=== PATIENT | male | born 1955 | race Two or more races ===

== ENCOUNTER 2021-02-02 05:06 | Inpatient (IN) | payer MEDICAID ==
[~2021-02-02] VITALS: Ht 167.6 cm; Wt 93.9 kg
[2021-02-02] MEDS ORDERED: MORPHINE SULFATE 4 MG/ML CPJ (NOT FOR IM USE) IV SCH (05:49)
[2021-02-02] MEDS ORDERED: MEROPENEM 1,000 MG in SODIUM CHLORIDE 0.9% 100 ML IV SCH ×2 (06:00→14:00)
[2021-02-02] MEDS ORDERED: VANCOMYCIN 1 G PREMIX 200 ML IV SCH ×2 (06:00→11:30)
[2021-02-02 06:16] LABS: BASOPHILS % 0.3 % (0.0-2.0); EOSINOPHILS % 1.8 % (0.0-5.0); HEMATOCRIT. 41.4 % (42.0-52.0); LYMPHOCYTES % 18.9 % (20.0-50.0); MEAN CORPUSCULAR HEMOGLOBIN 28.3 pg (28.0-32.0); MEAN CORPUSCULAR VOLUME 83.8 fL (80.0-94.0); MEAN PLATELET VOLUME 8.9 fl (7.4-10.4); PLATELET 414 x1000/uL (130-400); RED BLOOD CELL COUNT 4.94 mill/uL (4.7-6.1); RED CELL DISTRIBUTION WIDTH 14.4 % (11.6-14.6)
[2021-02-02 06:21] LABS: CHLORIDE 107 mEq/L (98-107)
[2021-02-02 06:25] LABS: PROTHROMBIN TIME 11.2 sec (9.6-11.0)
[2021-02-02] MEDS ORDERED: DIPHENHYDRAMINE 50MG/ML VIAL IV PRN (09:30)
[2021-02-02] MEDS ORDERED: ONDANSETRON HCL 4MG/2ML INJ IV PRN (09:30)
[2021-02-02] MEDS ORDERED: MORPHINE SULFATE 2 MG/ML CPJ (NOT FOR IM USE) IV PRN (09:30)
[2021-02-02] MEDS ORDERED: NALOXONE HCL 0.4MG/ML VIAL IV PRN (09:45)
[2021-02-02 11:41] LABS: CLARITY URINE CLEAR (CLEAR); COLOR URINE YELLOW (YELLOW); KETONES URINE NEGATIVE (NEGATIVE); LEUKOCYTE ESTERASE URINE NEGATIVE (NEGATIVE); NITRITE URINE NEGATIVE (NEGATIVE); OCCULT BLOOD URINE 1+ (NEGATIVE); PH URINE 5.5 (4.5-8.0); PROTEIN URINE 3+ (NEGATIVE); SPECIFIC GRAVITY URINE 1.016 (1.005-1.030); UROBILINOGEN URINE 0.2 E.U./dL (0.2-1.0)
[2021-02-02] MEDS: CLONIDINE 0.1MG TABLET PO PRN (14:37)
[2021-02-02 16:00] VITALS: BP 161/87
[2021-02-02 17:16] VITALS: BP 184/102
[2021-02-02] MEDS: MEROPENEM 1000MG in NORMAL SALINE 100ML IV SCH (18:29)
[2021-02-02] MEDS ORDERED: LOSA100T32 PO (19:03)
[2021-02-02] MEDS ORDERED: TAMS-11 PO (19:03)
[2021-02-02] MEDS ORDERED: AMLO10TA80 PO (19:03)
[2021-02-02] MEDS ORDERED: DULA0.75 SQ (19:03)
[2021-02-02] MEDS ORDERED: OMEP20CA14 PO (19:03)
[2021-02-02] MEDS ORDERED: GLIP10TA10 PO (19:03)
[2021-02-02] MEDS ORDERED: INSU100V34 SQ (19:03)
[2021-02-02] MEDS ORDERED: ATOR10TA69 PO (19:03)
[2021-02-02] MEDS ORDERED: INSU100I24 SQ (19:03)
[2021-02-02] MEDS ORDERED: GEMF600T90 PO (19:03)
[2021-02-02 20:00] VITALS: BP 151/97
[2021-02-02] MEDS ORDERED: DEXTROSE 50% WATER 50ML SYRINGE IV PRN (23:30)
[2021-02-03] VITALS: BP 142/75
[2021-02-03 04:00] VITALS: BP 150/81
[2021-02-03 05:39] LABS: BASOPHILS % 0.3 % (0.0-2.0); EOSINOPHILS % 2.2 % (0.0-5.0); HEMATOCRIT. 36.6 % (42.0-52.0); HEMOGLOBIN. 12.8 g/dL (14.0-18.0); MEAN CORPUSCULAR HEMOGLOBIN 28.6 pg (28.0-32.0); MEAN CORPUSCULAR VOLUME 81.7 fL (80.0-94.0); MEAN PLATELET VOLUME 9.2 fl (7.4-10.4); MONOCYTES % 10.2 % (2.0-8.0); NEUTROPHILS % 69.3 % (40.0-76.0); PLATELET 420 x1000/uL (130-400); RED BLOOD CELL COUNT 4.48 mill/uL (4.7-6.1); RED CELL DISTRIBUTION WIDTH 14.1 % (11.6-14.6)
[2021-02-03] MEDS ORDERED: VANCOMYCIN 1 G PREMIX 200 ML IV SCH ×2 (06:00→09:00)
[2021-02-03 06:02] LABS: CHLORIDE 107 mEq/L (98-107)
[2021-02-03 06:10] LABS: PHOSPHORUS 4.3 mg/dL (2.5-4.9)
[2021-02-03 06:11] LABS: LDL CHOLESTEROL 47 mg/dL (5-100)
[2021-02-03 06:13] LABS: CREATINE KINASE 52 IU/L (39-308); HDL CHOLESTEROL 21 mg/dL (40-59)
[2021-02-03] MEDS: MEROPENEM 1000MG in NORMAL SALINE 100ML IV SCH ×2 (06:15→17:54)
[2021-02-03] MEDS: INSULIN LISPRO 100 UNITS/ML SUBCUT SCH ×4 (07:40→21:21)
[2021-02-03 08:00] VITALS: BP 166/91
[2021-02-03] MEDS ORDERED: PNEUMOCOCCAL 23-VAL P-SAC VAC 0.5 ML IM ONE (08:00)
[2021-02-03] MEDS: BLOOD SUGAR DIAGNOSTIC STRIP TEST SCH ×4 (08:00→21:11)
[2021-02-03] MEDS: CLONIDINE 0.1MG TABLET PO PRN ×2 (08:35→20:20)
[2021-02-03] MEDS: AMLODIPINE 5MG TABLET PO SCH (08:35)
[2021-02-03 12:00] VITALS: BP 127/78
[2021-02-03] MEDS ORDERED: LIDOCAINE HCL 1% 20ML VIAL (Pyxis) INJ INFIL NR (12:30)
[2021-02-03] MEDS ORDERED: LIDOCAINE HCL 2% JELLY 5ML TOP NR (12:30)
[2021-02-03 16:00] VITALS: BP 159/90
[2021-02-03 20:00] VITALS: BP 173/92
[2021-02-04] VITALS: BP 129/71
[2021-02-04 04:00] VITALS: BP 151/85
[2021-02-04] MEDS: MEROPENEM 1000MG in NORMAL SALINE 100ML IV SCH ×2 (06:01→17:36)
[2021-02-04] MEDS: BLOOD SUGAR DIAGNOSTIC STRIP TEST SCH ×4 (06:31→21:00)
[2021-02-04] MEDS: INSULIN LISPRO 100 UNITS/ML SUBCUT SCH ×4 (07:00→22:42)
[2021-02-04 07:36] LABS: BASOPHILS % 0.3 % (0.0-2.0); EOSINOPHILS % 1.8 % (0.0-5.0); HEMATOCRIT. 37.9 % (42.0-52.0); HEMOGLOBIN. 13.1 g/dL (14.0-18.0); LYMPHOCYTES % 21.3 % (20.0-50.0); MEAN CORPUSCULAR HEMOGLOBIN 28.6 pg (28.0-32.0); MEAN PLATELET VOLUME 8.9 fl (7.4-10.4); MONOCYTES % 10.4 % (2.0-8.0); NEUTROPHILS % 66.2 % (40.0-76.0); PLATELET 425 x1000/uL (130-400); RED BLOOD CELL COUNT 4.56 mill/uL (4.7-6.1); RED CELL DISTRIBUTION WIDTH 14.2 % (11.6-14.6)
[2021-02-04 07:51] LABS: PHOSPHORUS 4.3 mg/dL (2.5-4.9)
[2021-02-04 08:00] VITALS: BP 137/77
[2021-02-04] MEDS: SODIUM HYPOCHLORITE 0.125% 473ML SOLUTION TOP SCH (09:00)
[2021-02-04] MEDS: AMLODIPINE 5MG TABLET PO SCH (10:02)
[2021-02-04] MEDS: VANCOMYCIN 750 MG PREMIX 150 ML IV SCH (10:02)
[2021-02-04] MEDS ORDERED: SODIUM CHLORIDE 0.9% 1,000 ML IV NR (14:45)
[2021-02-04 16:00] VITALS: BP 125/70
[2021-02-04] MEDS: ACETAMINOPHEN 325MG TABLET PO PRN (17:36)
[2021-02-04 20:00] VITALS: BP 162/91
[2021-02-05] VITALS: BP 159/91
[2021-02-05] MEDS: CLONIDINE 0.1MG TABLET PO PRN (02:57)
[2021-02-05 04:00] VITALS: BP 120/67
[2021-02-05] MEDS: MEROPENEM 1000MG in NORMAL SALINE 100ML IV SCH ×2 (05:53→18:28)
[2021-02-05] MEDS: BLOOD SUGAR DIAGNOSTIC STRIP TEST SCH ×4 (06:06→21:48)
[2021-02-05] MEDS: INSULIN LISPRO 100 UNITS/ML SUBCUT SCH ×4 (07:40→21:43)
[2021-02-05 08:18] LABS: BASOPHILS % 0.3 % (0.0-2.0); EOSINOPHILS % 1.1 % (0.0-5.0); HEMATOCRIT. 37.4 % (42.0-52.0); HEMOGLOBIN. 12.6 g/dL (14.0-18.0); MEAN CORPUSCULAR VOLUME 83.4 fL (80.0-94.0); MEAN PLATELET VOLUME 9.1 fl (7.4-10.4); MONOCYTES % 10.4 % (2.0-8.0); NEUTROPHILS % 68.2 % (40.0-76.0); PLATELET 429 x1000/uL (130-400); RED BLOOD CELL COUNT 4.49 mill/uL (4.7-6.1)
[2021-02-05] MEDS: VANCOMYCIN 750 MG PREMIX 150 ML IV SCH (08:41)
[2021-02-05 08:47] LABS: PHOSPHORUS 4.1 mg/dL (2.5-4.9)
[2021-02-05] MEDS: AMLODIPINE 5MG TABLET PO SCH (08:47)
[2021-02-05] MEDS: SODIUM HYPOCHLORITE 0.125% 473ML SOLUTION TOP SCH (09:00)
[2021-02-05 12:00] VITALS: BP_SYST 142; BP_SYST 170; BP_DIAS 58; BP_DIAS 82
[2021-02-05] MEDS ORDERED: AMLODIPINE 5MG TABLET PO NR (14:30)
[2021-02-05] MEDS ORDERED: SODIUM CHLORIDE 0.9% 1,000 ML IV NR (15:00)
[2021-02-05 15:49] VITALS: BP 152/80
[2021-02-05 20:00] VITALS: BP 149/90
[2021-02-05] MEDS: ACETAMINOPHEN 325MG TABLET PO PRN (21:42)
[2021-02-06] VITALS: BP 155/83
[2021-02-06 04:00] VITALS: BP 143/87
[2021-02-06] MEDS: MEROPENEM 1000MG in NORMAL SALINE 100ML IV SCH ×2 (05:24→17:51)
[2021-02-06] MEDS: BLOOD SUGAR DIAGNOSTIC STRIP TEST SCH ×4 (06:12→21:13)
[2021-02-06] MEDS: INSULIN LISPRO 100 UNITS/ML SUBCUT SCH ×4 (06:12→21:13)
[2021-02-06 07:08] LABS: BASOPHILS % 0.3 % (0.0-2.0); EOSINOPHILS % 2.2 % (0.0-5.0); HEMATOCRIT. 39.4 % (42.0-52.0); HEMOGLOBIN. 12.9 g/dL (14.0-18.0); LYMPHOCYTES % 23.6 % (20.0-50.0); MEAN CORPUSCULAR HEMOGLOBIN 27.5 pg (28.0-32.0); MEAN CORPUSCULAR VOLUME 84.2 fL (80.0-94.0); MEAN PLATELET VOLUME 9.2 fl (7.4-10.4); MONOCYTES % 12.3 % (2.0-8.0); NEUTROPHILS % 61.6 % (40.0-76.0); PLATELET 421 x1000/uL (130-400); RED BLOOD CELL COUNT 4.68 mill/uL (4.7-6.1); RED CELL DISTRIBUTION WIDTH 13.7 % (11.6-14.6)
[2021-02-06 07:26] LABS: PHOSPHORUS 4.2 mg/dL (2.5-4.9)
[2021-02-06 08:00] VITALS: BP 145/84
[2021-02-06] MEDS: AMLODIPINE 10MG TABLET PO SCH (09:12)
[2021-02-06] MEDS: SODIUM HYPOCHLORITE 0.125% 473ML SOLUTION TOP SCH (09:13)
[2021-02-06] MEDS: VANCOMYCIN 750 MG PREMIX 150 ML IV SCH (10:47)
[2021-02-06 12:00] VITALS: BP 154/81
[2021-02-06 16:00] VITALS: BP 116/68
[2021-02-06 20:00] VITALS: BP 134/62
[2021-02-06] MEDS: HYDRALAZINE HCL 50MG TABLET PO SCH (21:10)
[2021-02-06] MEDS: INSULIN GLARGINE UD 100 UNITS/ML SYR SUBCUT SCH (21:50)
[2021-02-07] VITALS: BP 145/62
[2021-02-07 04:00] VITALS: BP 151/86
[2021-02-07] MEDS: HYDRALAZINE HCL 50MG TABLET PO SCH ×3 (05:43→20:23)
[2021-02-07] MEDS: MEROPENEM 1000MG in NORMAL SALINE 100ML IV SCH ×2 (05:43→17:33)
[2021-02-07] MEDS: INSULIN LISPRO 100 UNITS/ML SUBCUT SCH ×4 (06:45→20:43)
[2021-02-07] MEDS: BLOOD SUGAR DIAGNOSTIC STRIP TEST SCH ×4 (06:45→20:24)
[2021-02-07 08:00] VITALS: BP 145/62
[2021-02-07] MEDS: VANCOMYCIN 750 MG PREMIX 150 ML IV SCH (09:29)
[2021-02-07] MEDS: AMLODIPINE 10MG TABLET PO SCH (09:30)
[2021-02-07] MEDS: SODIUM HYPOCHLORITE 0.125% 473ML SOLUTION TOP SCH (09:30)
[2021-02-07] MEDS: INSULIN GLARGINE UD 100 UNITS/ML SYR SUBCUT SCH ×2 (10:47→20:47)
[2021-02-07 12:00] VITALS: BP 136/69
[2021-02-07 16:30] VITALS: BP 169/90
[2021-02-07 20:00] VITALS: BP 155/86
[2021-02-07] MEDS: ACETAMINOPHEN 325MG TABLET PO PRN (20:24)
[2021-02-08] VITALS: BP 127/62
[2021-02-08 04:00] VITALS: BP 140/72
[2021-02-08] MEDS: MEROPENEM 1000MG in NORMAL SALINE 100ML IV SCH ×2 (05:38→17:42)
[2021-02-08] MEDS: HYDRALAZINE HCL 50MG TABLET PO SCH ×3 (05:44→21:24)
[2021-02-08] MEDS: INSULIN LISPRO 100 UNITS/ML SUBCUT SCH ×4 (05:44→21:25)
[2021-02-08] MEDS: BLOOD SUGAR DIAGNOSTIC STRIP TEST SCH ×4 (05:44→21:25)
[2021-02-08 06:43] LABS: BASOPHILS % 0.5 % (0.0-2.0); EOSINOPHILS % 2.5 % (0.0-5.0); HEMATOCRIT. 39.7 % (42.0-52.0); HEMOGLOBIN. 13.3 g/dL (14.0-18.0); LYMPHOCYTES % 24.1 % (20.0-50.0); MEAN CORPUSCULAR VOLUME 83.8 fL (80.0-94.0); MONOCYTES % 10.2 % (2.0-8.0); NEUTROPHILS % 62.7 % (40.0-76.0); PLATELET 433 x1000/uL (130-400); RED BLOOD CELL COUNT 4.74 mill/uL (4.7-6.1); RED CELL DISTRIBUTION WIDTH 14.1 % (11.6-14.6)
[2021-02-08 08:00] VITALS: BP 170/80
[2021-02-08] MEDS ORDERED: HEPARIN SODIUM 1,000 UNIT/1ML VIAL IV ONE (08:45)
[2021-02-08] MEDS: VANCOMYCIN 750 MG PREMIX 150 ML IV SCH (09:18)
[2021-02-08] MEDS: AMLODIPINE 10MG TABLET PO SCH (09:18)
[2021-02-08] MEDS: CLONIDINE 0.1MG TABLET PO PRN (09:18)
[2021-02-08] MEDS: SODIUM HYPOCHLORITE 0.125% 473ML SOLUTION TOP SCH (09:19)
[2021-02-08] MEDS: INSULIN GLARGINE UD 100 UNITS/ML SYR SUBCUT SCH ×2 (11:02→21:26)
[2021-02-08 12:00] VITALS: BP 146/84
[2021-02-08] MEDS ORDERED: MIDAZOLAM HCL 2 MG/2 ML VIAL ONE (13:12)
[2021-02-08] MEDS ORDERED: IODIXANOL 320MG/ML 100 ML BOTTLE IV ONE (13:13)
[2021-02-08] MEDS ORDERED: LIDOCAINE HCL 1% 20ML VIAL (Pyxis) INJ ONE (13:13)
[2021-02-08] MEDS ORDERED: FENTANYL CITRATE/PF 50MCG/ML 2ML VIAL ONE (13:13)
[2021-02-08] MEDS ORDERED: IOHEXOL-300 100 ML BOTTLE ONE (13:41)
[2021-02-08] MEDS: CLOPIDOGREL 75MG TABLET PO SCH (15:22)
[2021-02-08 16:00] VITALS: BP_SYST 137; BP_SYST 142; BP_DIAS 70; BP_DIAS 77
[2021-02-08 20:00] VITALS: BP 159/88
[2021-02-08] MEDS: ACETAMINOPHEN 325MG TABLET PO PRN (21:27)
[2021-02-09] VITALS: BP 127/79
[2021-02-09 04:00] VITALS: BP 151/82
[2021-02-09] MEDS: HYDRALAZINE HCL 50MG TABLET PO SCH ×3 (05:49→21:09)
[2021-02-09] MEDS: MEROPENEM 1000MG in NORMAL SALINE 100ML IV SCH ×2 (05:49→17:30)
[2021-02-09] MEDS: BLOOD SUGAR DIAGNOSTIC STRIP TEST SCH ×4 (06:20→21:01)
[2021-02-09] MEDS: INSULIN LISPRO 100 UNITS/ML SUBCUT SCH ×4 (06:20→21:07)
[2021-02-09 08:00] VITALS: BP 152/83
[2021-02-09] MEDS: CLOPIDOGREL 75MG TABLET PO SCH (10:29)
[2021-02-09] MEDS: AMLODIPINE 10MG TABLET PO SCH (10:29)
[2021-02-09] MEDS: VANCOMYCIN 750 MG PREMIX 150 ML IV SCH (10:29)
[2021-02-09] MEDS: SODIUM HYPOCHLORITE 0.125% 473ML SOLUTION TOP SCH (10:29)
[2021-02-09] MEDS: INSULIN GLARGINE UD 100 UNITS/ML SYR SUBCUT SCH ×2 (10:34→21:08)
[2021-02-09 12:00] VITALS: BP 125/76
[2021-02-09 16:00] VITALS: BP 144/82
[2021-02-09 20:00] VITALS: BP 144/84
[2021-02-09] MEDS ORDERED: DOXY100C5 MT (21:43)
[2021-02-09] MEDS ORDERED: AMOX1TAB16 PO (21:43)
[2021-02-10] VITALS: BP 140/70
[2021-02-10] MEDS: ACETAMINOPHEN 325MG TABLET PO PRN (00:43)
[2021-02-10 04:00] VITALS: BP 124/67
[2021-02-10] MEDS: HYDRALAZINE HCL 50MG TABLET PO SCH (06:08)
[2021-02-10] MEDS: BLOOD SUGAR DIAGNOSTIC STRIP TEST SCH (06:09)
[2021-02-10] MEDS: MEROPENEM 1000MG in NORMAL SALINE 100ML IV SCH (06:09)
[2021-02-10] MEDS: INSULIN LISPRO 100 UNITS/ML SUBCUT SCH (07:03)
[2021-02-10 08:00] VITALS: BP 156/81
[2021-02-10] MEDS: SODIUM HYPOCHLORITE 0.125% 473ML SOLUTION TOP SCH (09:02)
[2021-02-10] MEDS: AMLODIPINE 10MG TABLET PO SCH (09:02)
[2021-02-10] MEDS: CLOPIDOGREL 75MG TABLET PO SCH (09:02)
[2021-02-10] MEDS: INSULIN GLARGINE UD 100 UNITS/ML SYR SUBCUT SCH (09:04)
[2021-02-10] MEDS: VANCOMYCIN 750 MG PREMIX 150 ML IV SCH (09:05)
[2021-02-10 11:10] LABS: BASOPHILS % 0.6 % (0.0-2.0); EOSINOPHILS % 2.3 % (0.0-5.0); HEMATOCRIT. 37.3 % (42.0-52.0); HEMOGLOBIN. 12.6 g/dL (14.0-18.0); LYMPHOCYTES % 25.2 % (20.0-50.0); MEAN CORPUSCULAR HEMOGLOBIN 28.1 pg (28.0-32.0); MEAN CORPUSCULAR VOLUME 83.3 fL (80.0-94.0); MONOCYTES % 10.5 % (2.0-8.0); NEUTROPHILS % 61.4 % (40.0-76.0); PLATELET 401 x1000/uL (130-400); RED BLOOD CELL COUNT 4.48 mill/uL (4.7-6.1); RED CELL DISTRIBUTION WIDTH 14.1 % (11.6-14.6)
[2021-02-10 11:27] LABS: PHOSPHORUS 3.3 mg/dL (2.5-4.9)
[2021-02-10] MEDS ORDERED: CLOP75TA15 PO (11:55)
[2021-02-10] MEDS ORDERED: HYDR-4135 PO (11:55)
[2021-02-10 12:00] VITALS: BP 129/78
[2021-02-10 13:34] VITALS: BP 129/78
== END 2021-02-10 14:55 | disposition home health service (06) | DRG 710 ==
LOC: ER 05:06 → MICUSO 08:39 → EDBEDREQ 08:49 → EDBEDREQSVC 08:49 → 8WST 12:36
PROVIDERS: ADMIT Internal Medicine; ATTEND Internal Medicine
PROC: 0KBW0ZZ Excision of Left Foot Muscle, Open Approach (ICD-10-PCS; principal; 2021-02-03)
PROC: B41G1ZZ Fluoroscopy of Left Lower Extremity Arteries using Low Osmolar Contrast (ICD-10-PCS; 2021-02-08)
PROC: 047Q3ZZ Dilation of Left Anterior Tibial Artery, Percutaneous Approach (ICD-10-PCS; 2021-02-08)
DX: A41.9 Sepsis, unspecified organism (principal); N17.0 Acute kidney failure with tubular necrosis; E43 Unspecified severe protein-calorie malnutrition; I31.3 Pericardial effusion (noninflammatory); J18.9 Pneumonia, unspecified organism; D63.8 Anemia in other chronic diseases classified elsewhere; L03.116 Cellulitis of left lower limb; B48.8 Other specified mycoses; C34.90 Malignant neoplasm of unspecified part of unspecified bronchus or lung; E11.22 Type 2 diabetes mellitus with diabetic chronic kidney disease; L97.529 Non-pressure chronic ulcer of other part of left foot with unspecified severity; E11.621 Type 2 diabetes mellitus with foot ulcer; E11.628 Type 2 diabetes mellitus with other skin complications; E66.01 Morbid (severe) obesity due to excess calories; E78.5 Hyperlipidemia, unspecified; E78.00 Pure hypercholesterolemia, unspecified; R59.0 Localized enlarged lymph nodes; E11.51 Type 2 diabetes mellitus with diabetic peripheral angiopathy without gangrene; M62.50 Muscle wasting and atrophy, not elsewhere classified, unspecified site; N18.30 Chronic kidney disease, stage 3 unspecified; Z20.822 Contact with and (suspected) exposure to COVID-19; I12.9 Hypertensive chronic kidney disease with stage 1 through stage 4 chronic kidney disease, or unspecified chronic kidney disease; N40.0 Benign prostatic hyperplasia without lower urinary tract symptoms; Z82.49 Family history of ischemic heart disease and other diseases of the circulatory system; Z83.3 Family history of diabetes mellitus; Z86.11 Personal history of tuberculosis; Z79.4 Long term (current) use of insulin; Z68.33 Body mass index [BMI] 33.0-33.9, adult
CPT/HCPCS: 36415; 37228; 71045; 71250; 73630; 75710; 76770; 76881; 80048; 80053; 80061; 80202; 81003; 82550; 82962; 83036; 83605; 83735; 84100; 84145; 84443; 84484; 85025; 86635; 87070; 87075; 87426; 90732; 93005; 93923; 93971; 97110; 99291; C1725; C1760; C1769; C1893; C1894; J1644; J1815; J2185; J2250; J3010; J3370; J3490; J7040; J7050; Q9967

== ENCOUNTER 2021-09-11 23:16 | Inpatient (IN) | payer MEDICAID ==
[~2021-09-11] VITALS: Ht 180.3 cm; Wt 91.2 kg
[~2021-09-11 23:16] MED LIST: AMLO10TA80 PO; AMOX1TAB16 PO; ATOR10TA69 PO; CLOP75TA15 PO; DOXY100C5 MT; DULA0.75 SQ; GEMF600T90 PO; GLIP10TA10 PO; HYDR-4135 PO; INSU100I24 SQ; INSU100V34 SQ; OMEP20CA14 PO; TAMS-11 PO
[2021-09-11] MEDS ORDERED: MORPHINE SULFATE 4 MG/ML CPJ (NOT FOR IM USE) IV STA (23:22)
[2021-09-11] MEDS ORDERED: SODIUM CHLORIDE 0.9% 1,000 ML IV ONE (23:30)
[2021-09-11 23:50] LABS: BASOPHILS % 0.6 % (0.0-2.0); EOSINOPHILS % 0.7 % (0.0-5.0); HEMATOCRIT. 41.3 % (42.0-52.0); HEMOGLOBIN. 14.2 g/dL (14.0-18.0); LYMPHOCYTES % 15.4 % (20.0-50.0); MEAN CORPUSCULAR HEMOGLOBIN 29.9 pg (28.0-32.0); MEAN CORPUSCULAR VOLUME 86.8 fL (80.0-94.0); MEAN PLATELET VOLUME 10.7 fl (7.4-10.4); MONOCYTES % 5.3 % (2.0-8.0); PLATELET 171 x1000/uL (130-400); RED BLOOD CELL COUNT 4.76 mill/uL (4.7-6.1); RED CELL DISTRIBUTION WIDTH 13.5 % (11.6-14.6)
[2021-09-11 23:58] LABS: CHLORIDE 112 mEq/L (98-107)
[2021-09-12] MEDS ORDERED: MAGNESIUM/ALUMINUM HYDROXIDE/SIMETHICONE 30ML UDC PO ONE (01:00)
[2021-09-12] MEDS ORDERED: LABETALOL 5MG/ML SYR 20 MG/4 ML SYRINGE IV ONE (03:45)
[2021-09-12 05:14] LABS: CLARITY URINE CLEAR (CLEAR); COLOR URINE YELLOW (YELLOW); KETONES URINE NEGATIVE (NEGATIVE); LEUKOCYTE ESTERASE URINE NEGATIVE (NEGATIVE); NITRITE URINE NEGATIVE (NEGATIVE); OCCULT BLOOD URINE TRACE (NEGATIVE); PH URINE 7.5 (4.5-8.0); PROTEIN URINE 3+ (NEGATIVE); SPECIFIC GRAVITY URINE 1.014 (1.005-1.030); UROBILINOGEN URINE 0.2 E.U./dL (0.2-1.0)
[2021-09-12 09:50] VITALS: BP 136/77
[2021-09-12 12:00] VITALS: BP 131/82
[2021-09-12] MEDS ORDERED: DOCUSATE SODIUM 100MG CAPSULE PO PRN (12:15)
[2021-09-12] MEDS ORDERED: CLONIDINE 0.1MG TABLET PO PRN (12:15)
[2021-09-12] MEDS ORDERED: LORAZEPAM 0.5MG TABLET PO PRN (12:15)
[2021-09-12] MEDS ORDERED: MORPHINE SULFATE 2 MG/ML CPJ (NOT FOR IM USE) IV PRN (12:15)
[2021-09-12] MEDS ORDERED: IPRATROPIUM/ALBUTEROL 0.5-3(2.5)MG/3ML NEB HHN PRN (12:15)
[2021-09-12] MEDS ORDERED: ONDANSETRON HCL 4MG/2ML INJ IV PRN (12:15)
[2021-09-12] MEDS ORDERED: HYDROCODONE/ACETAMINOPHEN 5/325MG TABLET PO PRN (12:15)
[2021-09-12] MEDS ORDERED: ACETAMINOPHEN 325MG TABLET PO PRN ×2 (12:15)
[2021-09-12] MEDS: AMLODIPINE 5MG TABLET PO SCH ×2 (13:00→21:17)
[2021-09-12] MEDS: SODIUM CHLORIDE 0.9% 1,000 ML IV SCH (13:00)
[2021-09-12] MEDS: FAMOTIDINE 20MG TABLET PO SCH (13:00)
[2021-09-12] MEDS: HYDRALAZINE HCL 50MG TABLET PO SCH ×2 (14:00→21:17)
[2021-09-12 16:00] VITALS: BP 160/80
[2021-09-12] MEDS ORDERED: DEXTROSE 50% WATER 50ML SYRINGE IV PRN (19:15)
[2021-09-12 20:00] VITALS: BP 122/72
[2021-09-12] MEDS: INSULIN LISPRO 100 UNITS/ML SUBCUT SCH (20:46)
[2021-09-12] MEDS: BLOOD SUGAR DIAGNOSTIC STRIP TEST SCH (20:46)
[2021-09-12] MEDS ORDERED: FAMOTIDINE 20MG TABLET PO SCH (21:00)
[2021-09-13] VITALS: BP 120/75
[2021-09-13] MEDS: SODIUM CHLORIDE 0.9% 1,000 ML IV SCH ×3 (03:54→20:39)
[2021-09-13 04:00] VITALS: BP 129/73
[2021-09-13] MEDS: HYDRALAZINE HCL 50MG TABLET PO SCH ×3 (05:10→22:28)
[2021-09-13] MEDS: BLOOD SUGAR DIAGNOSTIC STRIP TEST SCH ×3 (06:23→21:00)
[2021-09-13] MEDS: INSULIN LISPRO 100 UNITS/ML SUBCUT SCH ×3 (06:23→21:00)
[2021-09-13 07:36] LABS: BASOPHILS % 0.5 % (0.0-2.0); HEMATOCRIT. 37.4 % (42.0-52.0); HEMOGLOBIN. 12.7 g/dL (14.0-18.0); LYMPHOCYTES % 35.6 % (20.0-50.0); MEAN CORPUSCULAR HEMOGLOBIN 29.5 pg (28.0-32.0); MEAN CORPUSCULAR VOLUME 87.2 fL (80.0-94.0); MEAN PLATELET VOLUME 11.6 fl (7.4-10.4); NEUTROPHILS % 50.9 % (40.0-76.0); PLATELET 163 x1000/uL (130-400); RED BLOOD CELL COUNT 4.29 mill/uL (4.7-6.1); RED CELL DISTRIBUTION WIDTH 13.4 % (11.6-14.6)
[2021-09-13 07:45] LABS: CHLORIDE 114 mEq/L (98-107)
[2021-09-13 08:00] VITALS: BP 112/73
[2021-09-13 08:35] LABS: AMYLASE 70 IU/L (25-115)
[2021-09-13] MEDS: CLOPIDOGREL 75MG TABLET PO SCH (09:26)
[2021-09-13] MEDS: FAMOTIDINE 20MG TABLET PO SCH (09:26)
[2021-09-13] MEDS: TAMSULOSIN HCL 0.4MG SR CAPSULE PO SCH (09:26)
[2021-09-13] MEDS: AMLODIPINE 5MG TABLET PO SCH ×2 (09:27→20:37)
[2021-09-13 12:00] VITALS: BP 138/79
[2021-09-13 15:19] LABS: BASOPHILS % 0.5 % (0.0-2.0); EOSINOPHILS % 2.5 % (0.0-5.0); HEMATOCRIT. 37.9 % (42.0-52.0); HEMOGLOBIN. 12.5 g/dL (14.0-18.0); LYMPHOCYTES % 34.2 % (20.0-50.0); MEAN CORPUSCULAR HEMOGLOBIN 29.4 pg (28.0-32.0); MEAN CORPUSCULAR VOLUME 88.9 fL (80.0-94.0); MEAN PLATELET VOLUME 10.5 fl (7.4-10.4); MONOCYTES % 9.1 % (2.0-8.0); NEUTROPHILS % 53.7 % (40.0-76.0); PLATELET 145 x1000/uL (130-400); RED BLOOD CELL COUNT 4.26 mill/uL (4.7-6.1); RED CELL DISTRIBUTION WIDTH 13.5 % (11.6-14.6)
[2021-09-13 16:00] VITALS: BP 139/76
[2021-09-13 20:00] VITALS: BP 166/86
[2021-09-13] MEDS ORDERED: NALOXONE HCL 0.4MG/ML VIAL IV PRN (23:45)
[2021-09-14] VITALS: BP 145/72
[2021-09-14 04:56] VITALS: BP 139/82
[2021-09-14] MEDS: SODIUM CHLORIDE 0.9% 1,000 ML IV SCH ×2 (05:00→15:00)
[2021-09-14] MEDS: HYDRALAZINE HCL 50MG TABLET PO SCH ×2 (05:01→13:34)
[2021-09-14] MEDS: BLOOD SUGAR DIAGNOSTIC STRIP TEST SCH ×3 (06:13→17:10)
[2021-09-14] MEDS: INSULIN LISPRO 100 UNITS/ML SUBCUT SCH ×3 (07:40→17:40)
[2021-09-14 08:00] VITALS: BP 158/80
[2021-09-14] MEDS: AMLODIPINE 5MG TABLET PO SCH (09:06)
[2021-09-14] MEDS: TAMSULOSIN HCL 0.4MG SR CAPSULE PO SCH (09:06)
[2021-09-14] MEDS: CLOPIDOGREL 75MG TABLET PO SCH (09:06)
[2021-09-14] MEDS: FAMOTIDINE 20MG TABLET PO SCH (09:06)
[2021-09-14 11:04] LABS: AMYLASE 65 IU/L (25-115)
[2021-09-14 12:00] VITALS: BP 169/82
[2021-09-14 16:00] VITALS: BP 140/75
[2021-09-14 16:39] VITALS: BP 140/75
== END 2021-09-14 17:08 | disposition home or self-care (01) | DRG 282 ==
LOC: ER 23:16 → ENRESERV 09-12 07:19 → 8WST 09-12 09:56
PROVIDERS: ADMIT Internal Medicine; ATTEND Internal Medicine
DX: K85.90 Acute pancreatitis without necrosis or infection, unspecified (principal); E11.22 Type 2 diabetes mellitus with diabetic chronic kidney disease; E11.65 Type 2 diabetes mellitus with hyperglycemia; D64.9 Anemia, unspecified; E78.5 Hyperlipidemia, unspecified; K80.20 Calculus of gallbladder without cholecystitis without obstruction; K76.9 Liver disease, unspecified; N18.9 Chronic kidney disease, unspecified; I12.9 Hypertensive chronic kidney disease with stage 1 through stage 4 chronic kidney disease, or unspecified chronic kidney disease; I16.1 Hypertensive emergency; N32.0 Bladder-neck obstruction; K40.90 Unilateral inguinal hernia, without obstruction or gangrene, not specified as recurrent; I69.341 Monoplegia of lower limb following cerebral infarction affecting right dominant side; Z79.02 Long term (current) use of antithrombotics/antiplatelets; Z79.4 Long term (current) use of insulin; Z82.49 Family history of ischemic heart disease and other diseases of the circulatory system; Z83.3 Family history of diabetes mellitus
CPT/HCPCS: 36415; 71045; 71250; 74176; 76705; 80048; 80053; 80061; 80076; 81003; 82150; 82962; 83036; 83605; 85025; 99285; J1815; J2270; J3490; J7030

== ENCOUNTER 2022-06-25 07:19 | Inpatient (IN) | payer MEDICARE, MEDICAID ==
[~2022-06-25] VITALS: Ht 177.8 cm; Wt 94.9 kg
[~2022-06-25 07:19] MED LIST changes: -AMOX1TAB16 PO; -DOXY100C5 MT
[2022-06-25 09:27] LABS: CLARITY URINE CLEAR (CLEAR); COLOR URINE YELLOW (YELLOW); KETONES URINE NEGATIVE (NEGATIVE); LEUKOCYTE ESTERASE URINE NEGATIVE (NEGATIVE); NITRITE URINE NEGATIVE (NEGATIVE); OCCULT BLOOD URINE 1+ (NEGATIVE); PROTEIN URINE 4+ (NEGATIVE); SPECIFIC GRAVITY URINE 1.018 (1.005-1.030)
[2022-06-25] MEDS ORDERED: FAMOTIDINE 20MG TABLET PO ONE (09:30)
[2022-06-25] MEDS ORDERED: ONDANSETRON 4MG ODT PO ONE (09:30)
[2022-06-25] MEDS ORDERED: KETOROLAC 15MG/ML VIAL IM ONE (09:30)
[2022-06-25 09:31] LABS: CHLORIDE 100 mEq/L (98-107)
[2022-06-25 09:35] LABS: PROTHROMBIN TIME 11.1 sec (9.6-11.0)
[2022-06-25 09:38] LABS: BASOPHILS % 0.3 % (0.0-2.0); EOSINOPHILS % 1.1 % (0.0-5.0); HEMATOCRIT. 43.2 % (42.0-52.0); HEMOGLOBIN. 14.5 g/dL (14.0-18.0); LYMPHOCYTES % 10.1 % (20.0-50.0); MEAN CORPUSCULAR HEMOGLOBIN 29.4 pg (28.0-32.0); MEAN CORPUSCULAR VOLUME 87.3 fL (80.0-94.0); MEAN PLATELET VOLUME 11.7 fl (7.4-10.4); MONOCYTES % 12.5 % (2.0-8.0); PLATELET 215 x1000/uL (130-400); RED BLOOD CELL COUNT 4.94 mill/uL (4.7-6.1); RED CELL DISTRIBUTION WIDTH 13.6 % (11.6-14.6)
[2022-06-25] MEDS ORDERED: POTASSIUM CHLORIDE 20MEQ/PACKET PO SCH (09:45)
[2022-06-25] MEDS ORDERED: SODIUM CHLORIDE 0.9% 1,000 ML IV ONE (11:45)
[2022-06-25] MEDS ORDERED: METRONIDAZOLE 500 MG PREMIX 100 ML IV SCH (13:00)
[2022-06-25] MEDS ORDERED: LEVOFLOXACIN 750MG PREMIX 150 ML IV SCH (13:00)
[2022-06-25 17:13] VITALS: BP 189/95
[2022-06-25 20:00] VITALS: BP 130/76
[2022-06-25] MEDS ORDERED: HYDRALAZINE 10 MG in SODIUM CHLORIDE 0.9% 49.5 ML IV PRN (20:00)
[2022-06-25] MEDS ORDERED: HYDRALAZINE 20MG/ML VIAL IV SCH (20:00)
[2022-06-25] MEDS ORDERED: NALOXONE HCL 0.4MG/ML VIAL IV PRN (20:15)
[2022-06-25] MEDS: SODIUM CHLORIDE 0.9% 1,000 ML IV SCH (21:00)
[2022-06-25] MEDS: MORPHINE SULFATE 2 MG/ML CPJ (NOT FOR IM USE) IV PRN (21:06)
[2022-06-25] MEDS ORDERED: HEPARIN 5000 UNITS/ML VIAL SUBCUT ONE (22:00)
[2022-06-26] VITALS (7 sets, daily range): BP systolic 143–189; BP diastolic 69–92
[2022-06-26] MEDS: SODIUM CHLORIDE 0.9% 1,000 ML IV SCH ×2 (05:28→16:15)
[2022-06-26] MEDS: HEPARIN 5000 UNITS/ML VIAL SUBCUT SCH ×3 (05:29→21:23)
[2022-06-26] MEDS: CLONIDINE 0.1MG TABLET PO PRN ×2 (05:34→16:12)
[2022-06-26] MEDS ORDERED: ONDANSETRON HCL 4MG/2ML INJ IV PRN (11:30)
[2022-06-26] MEDS ORDERED: ATOR10TA69 PO ×2 (12:34→12:59)
[2022-06-26] MEDS ORDERED: BENA10TA74 PO (12:59)
[2022-06-26] MEDS ORDERED: GEMF600T90 PO (12:59)
[2022-06-26] MEDS ORDERED: INSLIS SUBCUT (12:59)
[2022-06-26] MEDS ORDERED: CHOL100062 (12:59)
[2022-06-26] MEDS ORDERED: GLIP10TA10 PO (12:59)
[2022-06-26] MEDS ORDERED: GABA-532 PO (12:59)
[2022-06-26] MEDS ORDERED: AMLO10TA80 PO (12:59)
[2022-06-26] MEDS ORDERED: DULA0.75 SQ (12:59)
[2022-06-26] MEDS ORDERED: TAMS-11 PO (12:59)
[2022-06-26] MEDS ORDERED: INSU100I24 SQ (12:59)
[2022-06-26] MEDS ORDERED: CLOP75TA33 PO (12:59)
[2022-06-26] MEDS ORDERED: HYDR-4135 PO (12:59)
[2022-06-26] MEDS ORDERED: OMEP20CA14 PO (12:59)
[2022-06-26] MEDS ORDERED: HYDR25TA PO (12:59)
[2022-06-26] MEDS ORDERED: DEXTROSE 50% WATER 50ML SYRINGE IV PRN (13:15)
[2022-06-26] MEDS: AMLODIPINE 10MG TABLET PO SCH (13:55)
[2022-06-26] MEDS: OMEPRAZOLE 20MG CAPSULE EXTENDED RELEASE PO SCH (13:56)
[2022-06-26] MEDS: ATORVASTATIN CALCIUM 10MG TABLET PO SCH (13:56)
[2022-06-26] MEDS: CLOPIDOGREL 75MG TABLET PO SCH (13:56)
[2022-06-26] MEDS: TAMSULOSIN HCL 0.4MG SR CAPSULE PO SCH (13:59)
[2022-06-26 15:46] LABS: BASOPHILS % 0.2 % (0.0-2.0); EOSINOPHILS % 1.3 % (0.0-5.0); HEMATOCRIT. 39.8 % (42.0-52.0); HEMOGLOBIN. 13.3 g/dL (14.0-18.0); LYMPHOCYTES % 12.8 % (20.0-50.0); MEAN CORPUSCULAR HEMOGLOBIN 29.3 pg (28.0-32.0); MEAN CORPUSCULAR VOLUME 87.7 fL (80.0-94.0); MEAN PLATELET VOLUME 10.8 fl (7.4-10.4); MONOCYTES % 12.4 % (2.0-8.0); NEUTROPHILS % 73.3 % (40.0-76.0); PLATELET 229 x1000/uL (130-400); RED BLOOD CELL COUNT 4.54 mill/uL (4.7-6.1); RED CELL DISTRIBUTION WIDTH 13.7 % (11.6-14.6)
[2022-06-26 15:56] LABS: CHLORIDE 108 mEq/L (98-107)
[2022-06-26 16:04] LABS: AMYLASE 41 IU/L (25-115)
[2022-06-26] MEDS: MORPHINE SULFATE 2 MG/ML CPJ (NOT FOR IM USE) IV PRN (16:15)
[2022-06-26] MEDS: BLOOD SUGAR DIAGNOSTIC STRIP TEST SCH ×2 (17:20→20:52)
[2022-06-26] MEDS: INSULIN LISPRO 100 UNITS/ML SUBCUT SCH ×2 (17:50→20:54)
[2022-06-26] MEDS: CEFTRIAXONE 1,000 MG in DEXTROSE 5% WATER 50 ML IV SCH (18:47)
[2022-06-26] MEDS: INSULIN GLARGINE 100 UNITS/ML SUBCUT SCH (21:35)
[2022-06-27] VITALS: BP 163/82
[2022-06-27] MEDS: SODIUM CHLORIDE 0.9% 1,000 ML IV SCH ×3 (01:45→22:15)
[2022-06-27 04:00] VITALS: BP 166/75
[2022-06-27] MEDS: BLOOD SUGAR DIAGNOSTIC STRIP TEST SCH ×4 (06:25→21:00)
[2022-06-27] MEDS: OMEPRAZOLE 20MG CAPSULE EXTENDED RELEASE PO SCH (06:25)
[2022-06-27] MEDS: HEPARIN 5000 UNITS/ML VIAL SUBCUT SCH ×3 (06:25→21:00)
[2022-06-27 07:15] LABS: BASOPHILS % 0.5 % (0.0-2.0); EOSINOPHILS % 1.7 % (0.0-5.0); HEMATOCRIT. 32.3 % (42.0-52.0); HEMOGLOBIN. 11.5 g/dL (14.0-18.0); MEAN CORPUSCULAR VOLUME 89.7 fL (80.0-94.0); MONOCYTES % 13.5 % (2.0-8.0); NEUTROPHILS % 69.3 % (40.0-76.0); RED CELL DISTRIBUTION WIDTH 13.6 % (11.6-14.6)
[2022-06-27] MEDS: INSULIN LISPRO 100 UNITS/ML SUBCUT SCH ×4 (07:50→20:59)
[2022-06-27 08:00] VITALS: BP 208/100
[2022-06-27] MEDS: ATORVASTATIN CALCIUM 10MG TABLET PO SCH (08:31)
[2022-06-27] MEDS: AMLODIPINE 10MG TABLET PO SCH (08:31)
[2022-06-27] MEDS: TAMSULOSIN HCL 0.4MG SR CAPSULE PO SCH (08:31)
[2022-06-27] MEDS: CLOPIDOGREL 75MG TABLET PO SCH (08:31)
[2022-06-27] MEDS: HYDRALAZINE HCL 50MG TABLET PO SCH (08:32)
[2022-06-27 08:45] LABS: PLATELET 223 x1000/uL (130-400)
[2022-06-27] MEDS: INSULIN GLARGINE 100 UNITS/ML SUBCUT SCH ×2 (09:55→21:12)
[2022-06-27 12:00] VITALS: BP 164/80
[2022-06-27] MEDS ORDERED: POTASSIUM CHLORIDE 20MEQ TABLET SR PO NR (14:30)
[2022-06-27 16:00] VITALS: BP 147/64
[2022-06-27] MEDS: CEFTRIAXONE 1,000 MG in DEXTROSE 5% WATER 50 ML IV SCH (17:43)
[2022-06-27 20:00] VITALS: BP 157/66
[2022-06-28] VITALS: BP 152/78
[2022-06-28] MEDS: HEPARIN 5000 UNITS/ML VIAL SUBCUT SCH ×3 (06:13→14:13)
[2022-06-28 06:24] LABS: BASOPHILS % 0.4 % (0.0-2.0); HEMATOCRIT. 34.4 % (42.0-52.0); HEMOGLOBIN. 11.7 g/dL (14.0-18.0); LYMPHOCYTES % 20.3 % (20.0-50.0); MEAN CORPUSCULAR HEMOGLOBIN 29.5 pg (28.0-32.0); MEAN CORPUSCULAR VOLUME 86.6 fL (80.0-94.0); MEAN PLATELET VOLUME 10.2 fl (7.4-10.4); MONOCYTES % 13.6 % (2.0-8.0); NEUTROPHILS % 63.7 % (40.0-76.0); PLATELET 265 x1000/uL (130-400); RED BLOOD CELL COUNT 3.97 mill/uL (4.7-6.1); RED CELL DISTRIBUTION WIDTH 13.2 % (11.6-14.6)
[2022-06-28] MEDS: OMEPRAZOLE 20MG CAPSULE EXTENDED RELEASE PO SCH (06:31)
[2022-06-28] MEDS: INSULIN LISPRO 100 UNITS/ML SUBCUT SCH ×2 (07:39→13:14)
[2022-06-28] MEDS: BLOOD SUGAR DIAGNOSTIC STRIP TEST SCH ×2 (07:39→12:20)
[2022-06-28 08:08] VITALS: BP 182/82
[2022-06-28] MEDS: AMLODIPINE 10MG TABLET PO SCH (08:11)
[2022-06-28] MEDS: HYDRALAZINE HCL 50MG TABLET PO SCH (08:11)
[2022-06-28] MEDS: TAMSULOSIN HCL 0.4MG SR CAPSULE PO SCH (08:11)
[2022-06-28] MEDS: CLOPIDOGREL 75MG TABLET PO SCH (08:11)
[2022-06-28] MEDS: ATORVASTATIN CALCIUM 10MG TABLET PO SCH (08:11)
[2022-06-28] MEDS: SODIUM CHLORIDE 0.9% 1,000 ML IV SCH (08:12)
[2022-06-28 09:26] LABS: CHLORIDE 110 mEq/L (98-107)
[2022-06-28 09:42] LABS: CREATINE KINASE 88 IU/L (39-308)
[2022-06-28] MEDS: INSULIN GLARGINE 100 UNITS/ML SUBCUT SCH (10:59)
[2022-06-28 12:00] VITALS: BP 164/81
[2022-06-28] MEDS ORDERED: LEVO250T74 MT (13:01)
[2022-06-28] MEDS ORDERED: METR-167 MT (13:01)
[2022-06-28 13:57] VITALS: BP 164/81
[2022-06-28] MEDS: CLONIDINE 0.1MG TABLET PO PRN (14:08)
== END 2022-06-28 15:05 | disposition home health service (06) | DRG 872 ==
LOC: ER 07:19 → 6EST 12:56 → EDBEDREQTM 13:02 → EDBEDREQ 13:02
PROVIDERS: ADMIT Internal Medicine; ATTEND Internal Medicine
DX: A41.9 Sepsis, unspecified organism (principal); K80.62 Calculus of gallbladder and bile duct with acute cholecystitis without obstruction; I69.354 Hemiplegia and hemiparesis following cerebral infarction affecting left non-dominant side; N17.9 Acute kidney failure, unspecified; N18.4 Chronic kidney disease, stage 4 (severe); K76.0 Fatty (change of) liver, not elsewhere classified; I12.9 Hypertensive chronic kidney disease with stage 1 through stage 4 chronic kidney disease, or unspecified chronic kidney disease; E11.22 Type 2 diabetes mellitus with diabetic chronic kidney disease; D72.821 Monocytosis (symptomatic); Z20.822 Contact with and (suspected) exposure to COVID-19; R74.01 Elevation of levels of liver transaminase levels; E78.5 Hyperlipidemia, unspecified; Z79.4 Long term (current) use of insulin; Z79.899 Other long term (current) drug therapy; Z79.02 Long term (current) use of antithrombotics/antiplatelets; Z86.11 Personal history of tuberculosis; Z95.5 Presence of coronary angioplasty implant and graft; Z83.3 Family history of diabetes mellitus; Z82.49 Family history of ischemic heart disease and other diseases of the circulatory system; Z79.84 Long term (current) use of oral hypoglycemic drugs
CPT/HCPCS: 36415; 74181; 76705; 78227; 80048; 80053; 80076; 81003; 82150; 82550; 82962; 83036; 83605; 83735; 84100; 84145; 84484; 85025; 87426; 99285; A9537; C9803; J0360; J0696; J1644; J1815; J1885; J1956; J2270; J3490; J7030; J7060; Q0162

== ENCOUNTER 2022-12-14 15:08 | Inpatient (IN) | payer MEDICARE, MEDICAID ==
[~2022-12-14] VITALS: Ht 180.3 cm; Wt 90.7 kg
[~2022-12-14 15:08] MED LIST changes: +CHOL100062; +CLOP-31 PO; -CLOP75TA15 PO; +GABA-532 PO
[2022-12-14] MEDS ORDERED: ASPIRIN 81MG TABLET PO ONE (17:45)
[2022-12-14] MEDS ORDERED: NITROGLYCERIN 0.4MG TABLET SL SL PRN (17:45)
[2022-12-14] MEDS ORDERED: FUROSEMIDE 40MG/4ML VIAL IV ONE (17:45)
[2022-12-14 18:03] LABS: BASOPHILS % 0.2 % (0.0-2.0); EOSINOPHILS % 2.4 % (0.0-5.0); HEMATOCRIT. 24.8 % (42.0-52.0); HEMOGLOBIN. 8.5 g/dL (14.0-18.0); LYMPHOCYTES % 24.4 % (20.0-50.0); MEAN CORPUSCULAR HEMOGLOBIN 29.3 pg (28.0-32.0); MEAN CORPUSCULAR VOLUME 85.8 fL (80.0-94.0); MEAN PLATELET VOLUME 8.3 fl (7.4-10.4); MONOCYTES % 13.5 % (2.0-8.0); NEUTROPHILS % 59.5 % (40.0-76.0); PLATELET 433 x1000/uL (130-400); RED BLOOD CELL COUNT 2.89 mill/uL (4.7-6.1); RED CELL DISTRIBUTION WIDTH 14.1 % (11.6-14.6)
[2022-12-14 18:23] LABS: CHLORIDE 107 mEq/L (98-107)
[2022-12-14 18:24] LABS: INR 1.2; PROTHROMBIN TIME 12.3 sec (9.6-11.0)
[2022-12-14 19:52] LABS: CLARITY URINE CLEAR (CLEAR); COLOR URINE YELLOW (YELLOW); KETONES URINE NEGATIVE (NEGATIVE); LEUKOCYTE ESTERASE URINE NEGATIVE (NEGATIVE); NITRITE URINE NEGATIVE (NEGATIVE); OCCULT BLOOD URINE NEGATIVE (NEGATIVE); PROTEIN URINE 2+ (NEGATIVE); SPECIFIC GRAVITY URINE 1.008 (1.005-1.030); UROBILINOGEN URINE 0.2 E.U./dL (0.2-1.0)
[2022-12-14] MEDS ORDERED: VANCOMYCIN 1G PREMIX 200 ML IV ONE (20:45)
[2022-12-14] MEDS ORDERED: NA PHOS,M-B/NA PHOS,DI-BA ENEMA 118ML PR PRN (20:45)
[2022-12-14] MEDS ORDERED: ONDANSETRON HCL 4MG/2ML INJ IV PRN (20:45)
[2022-12-14] MEDS ORDERED: MAGNESIUM/ALUMINUM HYDROXIDE/SIMETHICONE 30ML UDC PO PRN (20:45)
[2022-12-14] MEDS ORDERED: ACETAMINOPHEN 325MG TABLET PO PRN (20:45)
[2022-12-14] MEDS ORDERED: DOCUSATE SODIUM 100MG CAPSULE PO PRN (20:45)
[2022-12-14] MEDS ORDERED: CLONIDINE 0.1MG TABLET PO PRN (20:45)
[2022-12-14] MEDS ORDERED: IPRATROPIUM/ALBUTEROL 0.5-3(2.5)MG/3ML NEB HHN PRN (20:45)
[2022-12-14] MEDS ORDERED: PIPERACILLIN/TAZ 3.375G PREMIX 50 ML IV NR (21:15)
[2022-12-14] MEDS ORDERED: VANCOMYCIN 1.5GM/250ML IVPB 250 ML IV NR (21:30)
[2022-12-14] MEDS ORDERED: FUROSEMIDE 40MG/4ML VIAL IVP NR (21:32)
[2022-12-14] MEDS: GABAPENTIN 300MG CAPSULE PO SCH (21:55)
[2022-12-14] MEDS: ATORVASTATIN CALCIUM 10MG TABLET PO SCH (21:55)
[2022-12-14] MEDS: HYDRALAZINE HCL 50MG TABLET PO SCH (22:04)
[2022-12-14 22:12] LABS: BG BASE EXCESS -5.5 mmol/L (-2.0-2.0); BG CARBOXYHEMOGLOBIN 0.4 % (0.5-1.5); BG DEOXYHEMOGLOBIN 8.3 % (0.0-5.0); BG HCO3 ACT 18.8 mmol/L (22.0-26.0); BG METHEMOGLOBIN 0.1 % (0.0-1.5); BG OXYGEN SATURATION 91.7 % (92.0-98.5); BG OXYHEMOGLOBIN 91.2 % (94.0-97.0); BG PCO2 32.4 mmHg (35.0-45.0); BG PH 7.381 (7.350-7.450); BG PO2 65.4 mmHg (75.0-100.0); BG SAMPLE SITE LEFT BRACHIAL; BG TOTAL HEMOGLOBIN 11.2 g/dL (12.0-18.0); BG VENT MODE ROOM AIR
[2022-12-15] VITALS: BP 144/84; PULSE 67; RESP 18; TEMP 97.5
[2022-12-15] MEDS: ACETAMINOPHEN 325MG TABLET PO PRN (00:46)
[2022-12-15] MEDS ORDERED: NALOXONE HCL 0.4MG/ML VIAL IV PRN (03:00)
[2022-12-15] MEDS: HYDROCODONE/ACETAMINOPHEN 5/325MG TABLET PO PRN ×2 (03:04→09:51)
[2022-12-15] MEDS ORDERED: DEXTROSE 50% WATER 50ML SYRINGE IV PRN (03:15)
[2022-12-15 04:00] VITALS: BP 178/84; PULSE 81; RESP 22; TEMP 97.4
[2022-12-15] MEDS: GABAPENTIN 300MG CAPSULE PO SCH ×2 (06:51→13:07)
[2022-12-15] MEDS: HYDRALAZINE HCL 50MG TABLET PO SCH ×3 (06:51→21:38)
[2022-12-15] MEDS: INSULIN LISPRO 100 UNITS/ML SUBCUT SCH ×4 (06:52→21:00)
[2022-12-15] MEDS: BLOOD SUGAR DIAGNOSTIC STRIP TEST SCH ×4 (06:52→21:37)
[2022-12-15 08:00] VITALS: BP 139/68; PULSE 89; RESP 18; TEMP 97.5
[2022-12-15] MEDS: CHOLECALCIFEROL (D3) 1000 UNIT TABLET PO SCH (08:51)
[2022-12-15] MEDS: ASPIRIN 81MG EC TABLET PO SCH (08:51)
[2022-12-15] MEDS: CLOPIDOGREL 75MG TABLET PO SCH (08:52)
[2022-12-15] MEDS: TAMSULOSIN HCL 0.4MG SR CAPSULE PO SCH (08:52)
[2022-12-15] MEDS ORDERED: GEMFIBROZIL 600MG TABLET PO SCH (09:00)
[2022-12-15] MEDS ORDERED: PIPERACILLIN/TAZOBACTAM 3.375 G in DEXTROSE 5% WATER 50 ML IV SCH (09:00)
[2022-12-15 09:30] LABS: *AMPHETAMINES SCREEN URINE NEGATIVE (NEGATIVE); *BARBITURATES SCREEN URINE NEGATIVE (NEGATIVE); *BENZODIAZEPINES SCREEN URINE NEGATIVE (NEGATIVE); *COCAINE SCREEN URINE NEGATIVE (NEGATIVE); CANNABINOID URINE SCREEN NEGATIVE (NEGATIVE); METHADONE URINE SCREEN NEGATIVE (NEGATIVE); OPIATES URINE SCREEN NEGATIVE (NEGATIVE); PHENCYCLIDINE URINE SCREEN NEGATIVE (NEGATIVE)
[2022-12-15 10:09] LABS: BASOPHILS % 0.3 % (0.0-2.0); EOSINOPHILS % 3.3 % (0.0-5.0); HEMATOCRIT. 25.8 % (42.0-52.0); HEMOGLOBIN. 8.9 g/dL (14.0-18.0); LYMPHOCYTES % 21.8 % (20.0-50.0); MEAN CORPUSCULAR HEMOGLOBIN 29.3 pg (28.0-32.0); MEAN CORPUSCULAR VOLUME 84.9 fL (80.0-94.0); MEAN PLATELET VOLUME 8.6 fl (7.4-10.4); MONOCYTES % 13.5 % (2.0-8.0); NEUTROPHILS % 61.1 % (40.0-76.0); PLATELET 432 x1000/uL (130-400); RED BLOOD CELL COUNT 3.04 mill/uL (4.7-6.1); RED CELL DISTRIBUTION WIDTH 14.1 % (11.6-14.6)
[2022-12-15 10:24] LABS: CREATINE KINASE 130 IU/L (39-308)
[2022-12-15] MEDS: PIPERACILLIN/TAZOBACTAM 3.375 G in DEXTROSE 5% WATER 50 ML IV SCH ×2 (10:36→21:34)
[2022-12-15] MEDS: FUROSEMIDE 40MG/4ML VIAL IVP SCH (10:41)
[2022-12-15 11:04] LABS: PHOSPHORUS 4.5 mg/dL (2.5-4.9); T4 FREE 1.23 ng/dL (0.76-1.46)
[2022-12-15 12:00] VITALS: BP 142/81; PULSE 92; RESP 18; TEMP 97.5
[2022-12-15 13:30] LABS: FERRITIN 165 ng/mL (22-322)
[2022-12-15] MEDS: GABAPENTIN 100MG CAPSULE PO SCH ×2 (14:32→21:37)
[2022-12-15 16:00] VITALS: BP 136/72; PULSE 85; RESP 18; TEMP 97.5
[2022-12-15 16:05] LABS: VITAMIN B12 SERUM >2000 pg/mL pg/mL (211-911)
[2022-12-15 20:00] VITALS: BP 146/83; PULSE 93; RESP 18; TEMP 96.9
[2022-12-15] MEDS ORDERED: EPOETIN ALFA 4000UNITS/ML VIAL SUBCUT NR (21:00)
[2022-12-15] MEDS: ATORVASTATIN CALCIUM 10MG TABLET PO SCH (21:33)
[2022-12-15] MEDS: CARVEDILOL 3.125 MG TABLET PO SCH (21:33)
[2022-12-16] VITALS: BP 141/84; PULSE 89; RESP 18; TEMP 97.1
[2022-12-16 04:00] VITALS: BP 141/84; PULSE 89; RESP 18; TEMP 97.1
[2022-12-16] MEDS: HYDRALAZINE HCL 50MG TABLET PO SCH ×3 (05:57→22:19)
[2022-12-16] MEDS: GABAPENTIN 100MG CAPSULE PO SCH ×3 (05:57→22:19)
[2022-12-16] MEDS: BLOOD SUGAR DIAGNOSTIC STRIP TEST SCH ×4 (06:10→22:36)
[2022-12-16] MEDS: INSULIN LISPRO 100 UNITS/ML SUBCUT SCH ×4 (06:10→22:36)
[2022-12-16] MEDS ORDERED: CEFTRIAXONE 2GM/50ML (ADDEASE) 50 ML IV SCH (07:30)
[2022-12-16 08:00] VITALS: BP 130/70; PULSE 94; RESP 18; TEMP 100
[2022-12-16 08:05] LABS: BASOPHILS % 0.4 % (0.0-2.0); EOSINOPHILS % 4.9 % (0.0-5.0); HEMATOCRIT. 26.9 % (42.0-52.0); HEMOGLOBIN. 9.2 g/dL (14.0-18.0); LYMPHOCYTES % 23.6 % (20.0-50.0); MEAN CORPUSCULAR HEMOGLOBIN 29.3 pg (28.0-32.0); MEAN CORPUSCULAR VOLUME 85.2 fL (80.0-94.0); MEAN PLATELET VOLUME 8.7 fl (7.4-10.4); MONOCYTES % 14.3 % (2.0-8.0); NEUTROPHILS % 56.8 % (40.0-76.0); PLATELET 427 x1000/uL (130-400); RED BLOOD CELL COUNT 3.15 mill/uL (4.7-6.1); RED CELL DISTRIBUTION WIDTH 14.4 % (11.6-14.6)
[2022-12-16 08:47] LABS: PHOSPHORUS 4.8 mg/dL (2.5-4.9)
[2022-12-16] MEDS: TAMSULOSIN HCL 0.4MG SR CAPSULE PO SCH (08:52)
[2022-12-16] MEDS: CLOPIDOGREL 75MG TABLET PO SCH (08:52)
[2022-12-16] MEDS: CEFTRIAXONE 2 G in DEXTROSE 5% WATER 50 ML IV SCH (08:52)
[2022-12-16] MEDS: CARVEDILOL 3.125 MG TABLET PO SCH (08:52)
[2022-12-16] MEDS: ASPIRIN 81MG EC TABLET PO SCH (08:52)
[2022-12-16] MEDS: CHOLECALCIFEROL (D3) 1000 UNIT TABLET PO SCH (08:52)
[2022-12-16] MEDS: FUROSEMIDE 40MG/4ML VIAL IVP SCH (08:53)
[2022-12-16 09:30] LABS: HAPTOGLOBIN 259 mg/dL (30-200); TOTAL IRON BINDING CAPACITY 219 ug/dL (250-450)
[2022-12-16] MEDS: AMLODIPINE 5MG TABLET PO SCH (10:14)
[2022-12-16 12:00] VITALS: BP 116/63; PULSE 88; RESP 18; TEMP 98.1
[2022-12-16 16:00] VITALS: BP 125/58; PULSE 93; RESP 18; TEMP 97.8
[2022-12-16] MEDS: FOLIC ACID 1MG TABLET PO SCH (17:05)
[2022-12-16 20:00] VITALS: BP 127/66; PULSE 86; RESP 20; TEMP 98
[2022-12-16] MEDS: ATORVASTATIN CALCIUM 10MG TABLET PO SCH (22:19)
[2022-12-16] MEDS: CARVEDILOL 6.25 MG TABLET PO SCH (22:20)
[2022-12-17] VITALS: BP 100/58; PULSE 78; RESP 18; TEMP 98.3
[2022-12-17] MEDS: HYDROCODONE/ACETAMINOPHEN 5/325MG TABLET PO PRN (00:22)
[2022-12-17 04:00] VITALS: BP 124/60; PULSE 80; RESP 20; TEMP 98.7
[2022-12-17] MEDS: GABAPENTIN 100MG CAPSULE PO SCH (06:41)
[2022-12-17] MEDS: BLOOD SUGAR DIAGNOSTIC STRIP TEST SCH ×2 (06:41→12:48)
[2022-12-17] MEDS: HYDRALAZINE HCL 50MG TABLET PO SCH (06:41)
[2022-12-17] MEDS: INSULIN LISPRO 100 UNITS/ML SUBCUT SCH ×2 (06:41→12:53)
[2022-12-17 08:00] VITALS: BP 150/80; PULSE 85; RESP 18; TEMP 97.1
[2022-12-17 08:19] LABS: HEMATOCRIT. 26.3 % (42.0-52.0); HEMOGLOBIN. 9.1 g/dL (14.0-18.0); MEAN CORPUSCULAR HEMOGLOBIN 29.3 pg (28.0-32.0); MEAN CORPUSCULAR VOLUME 85.2 fL (80.0-94.0); MEAN PLATELET VOLUME 8.6 fl (7.4-10.4); PLATELET 389 x1000/uL (130-400); RED BLOOD CELL COUNT 3.09 mill/uL (4.7-6.1); RED CELL DISTRIBUTION WIDTH 14.1 % (11.6-14.6)
[2022-12-17 08:20] LABS: PHOSPHORUS 4.6 mg/dL (2.5-4.9)
[2022-12-17] MEDS: ASPIRIN 81MG EC TABLET PO SCH (08:51)
[2022-12-17] MEDS: TAMSULOSIN HCL 0.4MG SR CAPSULE PO SCH (08:51)
[2022-12-17] MEDS: CHOLECALCIFEROL (D3) 1000 UNIT TABLET PO SCH (08:51)
[2022-12-17] MEDS: CEFTRIAXONE 2 G in DEXTROSE 5% WATER 50 ML IV SCH (08:51)
[2022-12-17] MEDS: CARVEDILOL 6.25 MG TABLET PO SCH ×2 (08:52→09:00)
[2022-12-17] MEDS: CLOPIDOGREL 75MG TABLET PO SCH (08:52)
[2022-12-17] MEDS: FOLIC ACID 1MG TABLET PO SCH (08:52)
[2022-12-17] MEDS: AMLODIPINE 5MG TABLET PO SCH (08:52)
[2022-12-17] MEDS: FUROSEMIDE 40MG/4ML VIAL IVP SCH (08:53)
[2022-12-17] MEDS ORDERED: MAGNESIUM GLUCONATE 500MG TABLET PO NR (09:30)
[2022-12-17 12:00] VITALS: BP 130/68; PULSE 87; RESP 18; TEMP 96.8
[2022-12-17] MEDS: ACETAMINOPHEN 325MG TABLET PO PRN (12:50)
[2022-12-17 12:57] VITALS: BP 130/68; PULSE 87; TEMP 96.8; O2SAT 95
[2022-12-17] MEDS ORDERED: CARVEDILOL 3.125 MG TABLET PO SCH (21:00)
[2022-12-17 21:32] LABS: PLATELET ESTIMATE NORMAL
[2022-12-23] MEDS ORDERED: HYDR-4135 PO (15:44)
[2022-12-23] MEDS ORDERED: INSU100I28 SQ (15:44)
== END 2022-12-17 13:15 | disposition home health service (06) | DRG 193 ==
LOC: ER 15:08 → 8WST 20:04 → EDBEDREQTM 20:45 → EDBEDREQ 20:45
PROVIDERS: ADMIT Internal Medicine; ATTEND Internal Medicine
DX: J18.9 Pneumonia, unspecified organism (principal); E43 Unspecified severe protein-calorie malnutrition; J96.00 Acute respiratory failure, unspecified whether with hypoxia or hypercapnia; I50.23 Acute on chronic systolic (congestive) heart failure; E87.1 Hypo-osmolality and hyponatremia; I42.9 Cardiomyopathy, unspecified; N18.5 Chronic kidney disease, stage 5; I13.2 Hypertensive heart and chronic kidney disease with heart failure and with stage 5 chronic kidney disease, or end stage renal disease; I69.354 Hemiplegia and hemiparesis following cerebral infarction affecting left non-dominant side; E78.5 Hyperlipidemia, unspecified; E11.22 Type 2 diabetes mellitus with diabetic chronic kidney disease; E11.42 Type 2 diabetes mellitus with diabetic polyneuropathy; Z20.822 Contact with and (suspected) exposure to COVID-19; D63.8 Anemia in other chronic diseases classified elsewhere; E11.51 Type 2 diabetes mellitus with diabetic peripheral angiopathy without gangrene; R59.0 Localized enlarged lymph nodes; D64.9 Anemia, unspecified; I44.0 Atrioventricular block, first degree; I45.10 Unspecified right bundle-branch block; Z79.4 Long term (current) use of insulin; Z86.11 Personal history of tuberculosis; Z68.27 Body mass index [BMI] 27.0-27.9, adult; Z86.15 Personal history of latent tuberculosis infection; Z87.891 Personal history of nicotine dependence; Z89.429 Acquired absence of other toe(s), unspecified side; Z95.5 Presence of coronary angioplasty implant and graft; Z99.3 Dependence on wheelchair; Z82.49 Family history of ischemic heart disease and other diseases of the circulatory system; Z83.3 Family history of diabetes mellitus; Z90.49 Acquired absence of other specified parts of digestive tract; Z79.899 Other long term (current) drug therapy
CPT/HCPCS: 36415; 36600; 71045; 71250; 80048; 80053; 80061; 80202; 80305; 81003; 82375; 82550; 82570; 82607; 82728; 82746; 82805; 82962; 83010; 83036; 83540; 83550; 83605; 83615; 83735; 83880; 83930; 83935; 84100; 84145; 84300; 84439; 84443; 84484; 85025; 85044; 85379; 87426; 93005; 93970; 97162; 99285; C9803; J0696; J0885; J1815; J1940; J2543; J3370; J7060

== ENCOUNTER → 2022-12-29 | Outpatient (CLI) | payer MEDICARE, MEDICAID ==
[~2022-12-29] MED LIST changes: -ATOR10TA69 PO; -INSU100I24 SQ; +INSU100I28 SQ; -INSU100V34 SQ
== END | disposition home or self-care (01) ==
LOC: RAD 11:25
PROVIDERS: ATTEND Internal Medicine Critical Care Medicine
DX: J90 Pleural effusion, not elsewhere classified (principal); R06.02 Shortness of breath
CPT/HCPCS: 71046

== ENCOUNTER 2023-02-14 16:03 | Inpatient (IN) | payer MEDICARE, MEDICAID ==
[~2023-02-14] VITALS: Ht 172.7 cm; Wt 88.1 kg
[2023-02-14 16:10] VITALS: O2SAT 91
[2023-02-14 17:02] LABS: BASOPHILS % 0.3 % (0.0-2.0); EOSINOPHILS % 0.3 % (0.0-5.0); HEMATOCRIT. 30.5 % (42.0-52.0); HEMOGLOBIN. 10.1 g/dL (14.0-18.0); LYMPHOCYTES % 18.5 % (20.0-50.0); MEAN CORPUSCULAR HEMOGLOBIN 28.1 pg (28.0-32.0); MEAN CORPUSCULAR HGB CONC 33.1 g/dL (31.0-37.0); MEAN CORPUSCULAR VOLUME 85.1 fL (80.0-94.0); MEAN PLATELET VOLUME 9.9 fl (7.4-10.4); MONOCYTES % 11.8 % (2.0-8.0); NEUTROPHILS % 69.1 % (40.0-76.0); PLATELET 196 x1000/uL (130-400); RED BLOOD CELL COUNT 3.58 mill/uL (4.7-6.1); RED CELL DISTRIBUTION WIDTH 16.7 % (11.6-14.6); WHITE BLOOD COUNT 10.5 x1000/uL (4.5-11.0)
[2023-02-14 17:07] LABS: CHLORIDE 103 mEq/L (98-107); INDEX HEMOLYSI 1 (1-3); INDEX ICTERIC 1 (1-4); INDEX LIPEMIC 1 (1-3); POTASSIUM 4.2 mEq/L (3.5-5.1); SODIUM 134 mEq/L (136-145)
[2023-02-14 17:10] LABS: INR 1.2; PROTHROMBIN TIME 12.5 sec (9.6-11.0)
[2023-02-14] MEDS ORDERED: ASPIRIN 325MG TABLET PO ONE (17:15)
[2023-02-14] MEDS ORDERED: FUROSEMIDE 40MG/4ML VIAL IVP ONE (17:15)
[2023-02-14 17:18] LABS: ALANINE AMINOTRANSFERASE 23 IU/L (13-61); ALBUMIN 3.4 g/dL (3.4-5.0); ASPARTATE AMINOTRANSFERASE 24 IU/L (15-37); BILIRUBIN TOTAL 0.5 mg/dL (0.1-1.0); CALCIUM 8.8 mg/dL (8.5-10.1); CARBON DIOXIDE 21 mEq/L (21-32); CREATININE 4.3 mg/dL (0.6-1.3); GLUCOSE 157 mg/dL (70-105); NT PRO B-TYPE NATRIURETIC PEP 17348 pg/mL (5-125); PROTEIN TOTAL 8.7 g/dL (6.0-8.3); UREA NITROGEN BLOOD 62 mg/dL (7-21)
[2023-02-14 17:35] LABS: BG BASE EXCESS -7.3 mmol/L (-2.0-2.0); BG CARBOXYHEMOGLOBIN 0.4 % (0.5-1.5); BG DEOXYHEMOGLOBIN 7.6 % (0.0-5.0); BG HCO3 ACT 16.3 mmol/L (22.0-26.0); BG METHEMOGLOBIN 0.2 % (0.0-1.5); BG OXYGEN SATURATION 92.4 % (92.0-98.5); BG OXYHEMOGLOBIN 91.8 % (94.0-97.0); BG PCO2 27.3 mmHg (35.0-45.0); BG PH 7.395 (7.350-7.450); BG PO2 65.6 mmHg (75.0-100.0); BG SAMPLE SITE RIGHT BRACHIAL; BG TOTAL HEMOGLOBIN 10.6 g/dL (12.0-18.0); BG VENT MODE ROOM AIR
[2023-02-14 17:46] LABS: TROPONIN I HIGH SENSITIVITY 323 ng/L (<78)
[2023-02-14 21:07] LABS: TROPONIN I HIGH SENSITIVITY 745 ng/L (<78)
[2023-02-15] VITALS (14 sets, daily range): BP systolic 132–158; BP diastolic 85–104; PULSE 90–107; RESP 16–26; TEMP 97.9–98.9
[2023-02-15] MEDS ORDERED: FURO40TA5 PO (01:34)
[2023-02-15] MEDS ORDERED: ACETAMINOPHEN 325MG TABLET PO PRN (01:45)
[2023-02-15] MEDS ORDERED: DOCUSATE SODIUM 100MG CAPSULE PO PRN (01:45)
[2023-02-15] MEDS ORDERED: CLONIDINE 0.1MG TABLET PO PRN (01:45)
[2023-02-15] MEDS ORDERED: IPRATROPIUM/ALBUTEROL 0.5-3(2.5)MG/3ML NEB HHN PRN (01:45)
[2023-02-15] MEDS ORDERED: NALOXONE HCL 0.4MG/ML VIAL IV PRN (02:00)
[2023-02-15] MEDS: HYDROCODONE/ACETAMINOPHEN 5/325MG TABLET PO PRN ×2 (04:19→15:16)
[2023-02-15 12:26] LABS: POTASSIUM 4.3 mEq/L (3.5-5.1)
[2023-02-15 12:38] LABS: CREATININE 4.4 mg/dL (0.6-1.3)
[2023-02-15] MEDS ORDERED: HEPARIN 1000 UNITS/ML 10ML ONE (13:06)
[2023-02-15] MEDS ORDERED: LIDOCAINE HCL 1% 10 MG/ML 10ML VIAL ONE (13:06)
[2023-02-15 14:28] LABS: HEPATITIS B SURFACE ANTIGEN NEGATIVE
[2023-02-15 14:54] LABS: HEPATITIS B CORE AB IGM NEGATIVE; HEPATITIS C VIR.AB 0.21 INDEXVAL (0.00-0.80)
[2023-02-15 14:56] LABS: HEPATITIS A AB IGM NEGATIVE (NEGATIVE)
[2023-02-15] MEDS: CLOPIDOGREL 75MG TABLET PO SCH (16:44)
[2023-02-15] MEDS: NITROGLYCERIN OINT 1GM/INCH UDPKT TD SCH ×2 (16:44→22:38)
[2023-02-15] MEDS: TAMSULOSIN HCL 0.4MG SR CAPSULE PO SCH (16:47)
[2023-02-15] MEDS: OMEPRAZOLE 20MG CAPSULE EXTENDED RELEASE PO SCH (16:48)
[2023-02-15] MEDS ORDERED: DEXTROSE 50% WATER 50ML SYRINGE IV PRN (20:45)
[2023-02-15] MEDS: BLOOD SUGAR DIAGNOSTIC STRIP TEST SCH (21:00)
[2023-02-15] MEDS: INSULIN LISPRO 100 UNITS/ML SUBCUT SCH (21:00)
[2023-02-15] MEDS: CARVEDILOL 3.125 MG TABLET PO SCH (21:00)
[2023-02-15] MEDS: FUROSEMIDE 40MG/4ML VIAL IVP SCH (22:38)
[2023-02-15] MEDS: ATORVASTATIN CALCIUM 20MG TABLET PO SCH (22:38)
[2023-02-16] VITALS (16 sets, daily range): BP systolic 108–150; BP diastolic 58–98; PULSE 98–110; RESP 18–27; TEMP 98.2–99.8
[2023-02-16] MEDS: ACETAMINOPHEN 325MG TABLET PO PRN ×2 (01:49→10:41)
[2023-02-16] MEDS: BLOOD SUGAR DIAGNOSTIC STRIP TEST SCH ×4 (05:58→20:52)
[2023-02-16] MEDS: NITROGLYCERIN OINT 1GM/INCH UDPKT TD SCH ×4 (05:58→22:34)
[2023-02-16] MEDS: INSULIN LISPRO 100 UNITS/ML SUBCUT SCH ×4 (06:40→20:53)
[2023-02-16 07:23] LABS: HEMATOCRIT. 27.8 % (42.0-52.0); HEMOGLOBIN. 9.4 g/dL (14.0-18.0); MEAN CORPUSCULAR HEMOGLOBIN 28.2 pg (28.0-32.0); MEAN CORPUSCULAR HGB CONC 33.6 g/dL (31.0-37.0); MEAN CORPUSCULAR VOLUME 83.8 fL (80.0-94.0); PLATELET 182 x1000/uL (130-400); RED BLOOD CELL COUNT 3.32 mill/uL (4.7-6.1); RED CELL DISTRIBUTION WIDTH 16.6 % (11.6-14.6); WHITE BLOOD COUNT 12.5 x1000/uL (4.5-11.0)
[2023-02-16 07:31] LABS: DIFFERENTIAL COMMENT 1
[2023-02-16 07:36] LABS: POTASSIUM 3.7 mEq/L (3.5-5.1)
[2023-02-16 07:45] LABS: CALCIUM 8.4 mg/dL (8.5-10.1); CREATININE 4.2 mg/dL (0.6-1.3); PHOSPHORUS 3.8 mg/dL (2.5-4.9)
[2023-02-16] MEDS: OMEPRAZOLE 20MG CAPSULE EXTENDED RELEASE PO SCH (09:44)
[2023-02-16] MEDS: CLOPIDOGREL 75MG TABLET PO SCH (09:44)
[2023-02-16] MEDS: TAMSULOSIN HCL 0.4MG SR CAPSULE PO SCH (09:44)
[2023-02-16] MEDS: FUROSEMIDE 40MG/4ML VIAL IVP SCH ×2 (09:44→22:34)
[2023-02-16] MEDS: CARVEDILOL 3.125 MG TABLET PO SCH ×2 (10:41→22:29)
[2023-02-16] MEDS: HYDROCODONE/ACETAMINOPHEN 5/325MG TABLET PO PRN (15:39)
[2023-02-16] MEDS ORDERED: MORPHINE SULFATE 2 MG/ML CPJ (NOT FOR IM USE) IV PRN (17:45)
[2023-02-16 18:13] LABS: PLATELET ESTIMATE NORMAL
[2023-02-16] MEDS: ONDANSETRON HCL 4MG/2ML INJ IV PRN (20:46)
[2023-02-16] MEDS ORDERED: MECLIZINE 25MG TABLET PO PRN (22:30)
[2023-02-16] MEDS: ATORVASTATIN CALCIUM 20MG TABLET PO SCH (22:30)
[2023-02-17] VITALS (7 sets, daily range): BP systolic 116–136; BP diastolic 57–80; PULSE 78–102; RESP 16–24; TEMP 97.6–99.6
[2023-02-17] MEDS: OMEPRAZOLE 20MG CAPSULE EXTENDED RELEASE PO SCH (06:13)
[2023-02-17] MEDS: ONDANSETRON HCL 4MG/2ML INJ IV PRN (06:31)
[2023-02-17] MEDS: BLOOD SUGAR DIAGNOSTIC STRIP TEST SCH ×4 (06:36→21:07)
[2023-02-17] MEDS: NITROGLYCERIN OINT 1GM/INCH UDPKT TD SCH ×3 (06:42→21:13)
[2023-02-17] MEDS: INSULIN LISPRO 100 UNITS/ML SUBCUT SCH ×4 (07:20→21:14)
[2023-02-17 08:32] LABS: HEMATOCRIT. 28.7 % (42.0-52.0); HEMOGLOBIN. 9.6 g/dL (14.0-18.0); MEAN CORPUSCULAR HGB CONC 33.5 g/dL (31.0-37.0); MEAN CORPUSCULAR VOLUME 83.5 fL (80.0-94.0); MEAN PLATELET VOLUME 9.9 fl (7.4-10.4); PLATELET 211 x1000/uL (130-400); RED BLOOD CELL COUNT 3.43 mill/uL (4.7-6.1); RED CELL DISTRIBUTION WIDTH 16.2 % (11.6-14.6); WHITE BLOOD COUNT 15.9 x1000/uL (4.5-11.0)
[2023-02-17 08:35] LABS: DIFFERENTIAL COMMENT 1
[2023-02-17 08:59] LABS: POTASSIUM 3.5 mEq/L (3.5-5.1)
[2023-02-17 09:09] LABS: CALCIUM 8.8 mg/dL (8.5-10.1); CREATININE 3.9 mg/dL (0.6-1.3)
[2023-02-17] MEDS: METOCLOPRAMIDE HCL 10MG/2ML VIAL IV PRN ×2 (12:59→18:00)
[2023-02-17] MEDS: TAMSULOSIN HCL 0.4MG SR CAPSULE PO SCH (12:59)
[2023-02-17] MEDS: FUROSEMIDE 40MG/4ML VIAL IVP SCH ×2 (12:59→21:02)
[2023-02-17] MEDS: CLOPIDOGREL 75MG TABLET PO SCH (13:00)
[2023-02-17] MEDS: CARVEDILOL 3.125 MG TABLET PO SCH ×2 (13:00→21:02)
[2023-02-17] MEDS: CEFTRIAXONE 1,000 MG in DEXTROSE 5% WATER 50 ML IV SCH (13:01)
[2023-02-17] MEDS: DOXYCYCLINE HYCLATE 100MG CAPSULE PO SCH (18:00)
[2023-02-17] MEDS: LORAZEPAM 0.5MG TABLET PO PRN (21:02)
[2023-02-17] MEDS: ATORVASTATIN CALCIUM 20MG TABLET PO SCH (21:02)
[2023-02-18] VITALS (15 sets, daily range): BP systolic 109–131; BP diastolic 53–75; PULSE 84–104; RESP 18–25; TEMP 96.6–100.6
[2023-02-18] MEDS: OMEPRAZOLE 20MG CAPSULE EXTENDED RELEASE PO SCH (06:02)
[2023-02-18] MEDS: LORAZEPAM 0.5MG TABLET PO PRN (06:02)
[2023-02-18] MEDS: BLOOD SUGAR DIAGNOSTIC STRIP TEST SCH ×4 (06:05→21:18)
[2023-02-18] MEDS: NITROGLYCERIN OINT 1GM/INCH UDPKT TD SCH ×3 (06:05→21:27)
[2023-02-18 07:17] LABS: PLATELET ESTIMATE NORMAL
[2023-02-18] MEDS: FUROSEMIDE 40MG/4ML VIAL IVP SCH ×2 (08:50→21:41)
[2023-02-18] MEDS: INSULIN LISPRO 100 UNITS/ML SUBCUT SCH ×4 (09:00→21:47)
[2023-02-18] MEDS: DOXYCYCLINE HYCLATE 100MG CAPSULE PO SCH ×2 (09:50→17:37)
[2023-02-18] MEDS: TAMSULOSIN HCL 0.4MG SR CAPSULE PO SCH (09:51)
[2023-02-18] MEDS: CLOPIDOGREL 75MG TABLET PO SCH (09:51)
[2023-02-18] MEDS: CARVEDILOL 3.125 MG TABLET PO SCH ×2 (09:51→21:46)
[2023-02-18] MEDS: ASPIRIN 81MG TABLET PO SCH (10:48)
[2023-02-18 11:57] LABS: HEMATOCRIT. 26.2 % (42.0-52.0); HEMOGLOBIN. 8.5 g/dL (14.0-18.0); MEAN CORPUSCULAR HEMOGLOBIN 27.4 pg (28.0-32.0); MEAN CORPUSCULAR HGB CONC 32.5 g/dL (31.0-37.0); MEAN CORPUSCULAR VOLUME 84.4 fL (80.0-94.0); MEAN PLATELET VOLUME 9.6 fl (7.4-10.4); PLATELET 225 x1000/uL (130-400); RED BLOOD CELL COUNT 3.11 mill/uL (4.7-6.1); RED CELL DISTRIBUTION WIDTH 16.3 % (11.6-14.6); WHITE BLOOD COUNT 15.6 x1000/uL (4.5-11.0)
[2023-02-18 12:02] LABS: DIFFERENTIAL COMMENT 1
[2023-02-18 12:14] LABS: CHLORIDE 97 mEq/L (98-107); INDEX HEMOLYSI 1 (1-3); INDEX ICTERIC 1 (1-4); INDEX LIPEMIC 1 (1-3); POTASSIUM 3.6 mEq/L (3.5-5.1); SODIUM 129 mEq/L (136-145)
[2023-02-18 12:22] LABS: ALANINE AMINOTRANSFERASE 19 IU/L (13-61); ALBUMIN 2.4 g/dL (3.4-5.0); ASPARTATE AMINOTRANSFERASE 19 IU/L (15-37); BILIRUBIN TOTAL 0.4 mg/dL (0.1-1.0); CALCIUM 7.3 mg/dL (8.5-10.1); CARBON DIOXIDE 23 mEq/L (21-32); GLUCOSE 180 mg/dL (70-105); PHOSPHORUS 4.6 mg/dL (2.5-4.9); PROTEIN TOTAL 7.7 g/dL (6.0-8.3); UREA NITROGEN BLOOD 75 mg/dL (7-21)
[2023-02-18 12:30] LABS: CREATININE 5.4 mg/dL (0.6-1.3)
[2023-02-18 13:19] LABS: ANISOCYTOSIS 1+; PLATELET ESTIMATE NORMAL
[2023-02-18] MEDS: CEFTRIAXONE 1,000 MG in DEXTROSE 5% WATER 50 ML IV SCH (14:41)
[2023-02-18] MEDS: LORAZEPAM 1MG TABLET PO PRN (21:24)
[2023-02-18] MEDS: ATORVASTATIN CALCIUM 20MG TABLET PO SCH (21:45)
[2023-02-19 04:00] VITALS: BP 114/72; PULSE 80; RESP 20; TEMP 99.5
[2023-02-19] MEDS: BLOOD SUGAR DIAGNOSTIC STRIP TEST SCH ×4 (06:50→21:49)
[2023-02-19] MEDS: OMEPRAZOLE 20MG CAPSULE EXTENDED RELEASE PO SCH (06:50)
[2023-02-19] MEDS: INSULIN LISPRO 100 UNITS/ML SUBCUT SCH ×4 (07:20→22:31)
[2023-02-19 08:00] VITALS: BP 125/86; PULSE 89; RESP 21; TEMP 98.9
[2023-02-19] MEDS: NITROGLYCERIN OINT 1GM/INCH UDPKT TD SCH ×3 (08:30→22:31)
[2023-02-19] MEDS: FUROSEMIDE 40MG/4ML VIAL IVP SCH ×2 (08:32→22:20)
[2023-02-19] MEDS: CARVEDILOL 3.125 MG TABLET PO SCH ×2 (08:32→22:28)
[2023-02-19] MEDS: DOXYCYCLINE HYCLATE 100MG CAPSULE PO SCH ×2 (08:32→17:54)
[2023-02-19] MEDS: TAMSULOSIN HCL 0.4MG SR CAPSULE PO SCH (08:32)
[2023-02-19 09:38] LABS: HEMATOCRIT. 27.6 % (42.0-52.0); MEAN CORPUSCULAR HEMOGLOBIN 27.3 pg (28.0-32.0); MEAN CORPUSCULAR HGB CONC 32.7 g/dL (31.0-37.0); MEAN CORPUSCULAR VOLUME 83.5 fL (80.0-94.0); MEAN PLATELET VOLUME 9.5 fl (7.4-10.4); PLATELET 249 x1000/uL (130-400); RED CELL DISTRIBUTION WIDTH 16.2 % (11.6-14.6); WHITE BLOOD COUNT 11.8 x1000/uL (4.5-11.0)
[2023-02-19 09:43] LABS: DIFFERENTIAL COMMENT 1
[2023-02-19 10:13] LABS: CALCIUM 8.3 mg/dL (8.5-10.1)
[2023-02-19 10:35] LABS: CREATININE 6.2 mg/dL (0.6-1.3)
[2023-02-19 12:00] VITALS: BP 127/77; PULSE 88; RESP 21; TEMP 97.8
[2023-02-19] MEDS: CEFTRIAXONE 1,000 MG in DEXTROSE 5% WATER 50 ML IV SCH (12:47)
[2023-02-19] MEDS: HYDROCODONE/ACETAMINOPHEN 10/325MG TABLET PO PRN (14:27)
[2023-02-19 14:39] LABS: ANISOCYTOSIS 1+; PLATELET ESTIMATE NORMAL
[2023-02-19 16:00] VITALS: BP 112/87; PULSE 89; RESP 19; TEMP 98
[2023-02-19] MEDS: METOCLOPRAMIDE HCL 10MG/2ML VIAL IV PRN (18:00)
[2023-02-19 20:00] VITALS: BP 127/85; PULSE 81; RESP 13; TEMP 97.8
[2023-02-19] MEDS: ONDANSETRON HCL 4MG/2ML INJ IV PRN (22:22)
[2023-02-19] MEDS: LORAZEPAM 1MG TABLET PO PRN (22:22)
[2023-02-19] MEDS: ATORVASTATIN CALCIUM 20MG TABLET PO SCH (22:22)
[2023-02-20] VITALS (16 sets, daily range): BP systolic 117–149; BP diastolic 74–97; PULSE 72–84; RESP 14–21; TEMP 97.4–98.5
[2023-02-20] MEDS: ONDANSETRON HCL 4MG/2ML INJ IV PRN ×2 (06:32→17:56)
[2023-02-20] MEDS: OMEPRAZOLE 20MG CAPSULE EXTENDED RELEASE PO SCH (06:32)
[2023-02-20] MEDS: NITROGLYCERIN OINT 1GM/INCH UDPKT TD SCH ×3 (06:35→21:04)
[2023-02-20] MEDS: BLOOD SUGAR DIAGNOSTIC STRIP TEST SCH ×4 (06:35→21:15)
[2023-02-20] MEDS: TAMSULOSIN HCL 0.4MG SR CAPSULE PO SCH (09:00)
[2023-02-20] MEDS: CARVEDILOL 3.125 MG TABLET PO SCH (09:00)
[2023-02-20] MEDS: METOCLOPRAMIDE HCL 10MG/2ML VIAL IV PRN ×2 (09:41→15:52)
[2023-02-20] MEDS: DOXYCYCLINE HYCLATE 100MG CAPSULE PO SCH ×2 (09:41→17:00)
[2023-02-20] MEDS: FUROSEMIDE 40MG/4ML VIAL IVP SCH ×2 (09:41→21:03)
[2023-02-20] MEDS: INSULIN LISPRO 100 UNITS/ML SUBCUT SCH ×4 (09:49→21:19)
[2023-02-20 10:02] LABS: HEMATOCRIT. 27.6 % (42.0-52.0); HEMOGLOBIN. 9.3 g/dL (14.0-18.0); MEAN CORPUSCULAR HEMOGLOBIN 27.9 pg (28.0-32.0); MEAN CORPUSCULAR HGB CONC 33.5 g/dL (31.0-37.0); MEAN CORPUSCULAR VOLUME 83.3 fL (80.0-94.0); MEAN PLATELET VOLUME 9.6 fl (7.4-10.4); PLATELET 253 x1000/uL (130-400); RED BLOOD CELL COUNT 3.31 mill/uL (4.7-6.1); RED CELL DISTRIBUTION WIDTH 16.1 % (11.6-14.6); WHITE BLOOD COUNT 10.2 x1000/uL (4.5-11.0)
[2023-02-20 10:07] LABS: DIFFERENTIAL COMMENT 1
[2023-02-20 10:56] LABS: CHLORIDE 96 mEq/L (98-107); INDEX HEMOLYSI 1 (1-3); INDEX ICTERIC 1 (1-4); INDEX LIPEMIC 1 (1-3); POTASSIUM 4.2 mEq/L (3.5-5.1); SODIUM 128 mEq/L (136-145)
[2023-02-20] MEDS ORDERED: METOPROLOL TARTRATE 50MG TABLET PO NR (11:00)
[2023-02-20 11:04] LABS: ALANINE AMINOTRANSFERASE 33 IU/L (13-61); ALBUMIN 2.5 g/dL (3.4-5.0); ASPARTATE AMINOTRANSFERASE 36 IU/L (15-37); BILIRUBIN TOTAL 0.3 mg/dL (0.1-1.0); CALCIUM 8.3 mg/dL (8.5-10.1); CARBON DIOXIDE 21 mEq/L (21-32); GLUCOSE 220 mg/dL (70-105); PHOSPHORUS 6.2 mg/dL (2.5-4.9); PROTEIN TOTAL 8.3 g/dL (6.0-8.3)
[2023-02-20 11:22] LABS: CREATININE 8.4 mg/dL (0.6-1.3); UREA NITROGEN BLOOD 85 mg/dL (7-21)
[2023-02-20 11:31] LABS: ANISOCYTOSIS 1+; PLATELET ESTIMATE NORMAL
[2023-02-20] MEDS: CEFTRIAXONE 1,000 MG in DEXTROSE 5% WATER 50 ML IV SCH (12:59)
[2023-02-20] MEDS: HYDROCODONE/ACETAMINOPHEN 10/325MG TABLET PO PRN (13:00)
[2023-02-20] MEDS: LORAZEPAM 1MG TABLET PO PRN (17:55)
[2023-02-20] MEDS ORDERED: METOPROLOL TARTRATE 50MG TABLET PO SCH (21:00)
[2023-02-20] MEDS: ATORVASTATIN CALCIUM 20MG TABLET PO SCH (21:04)
[2023-02-21] VITALS (13 sets, daily range): BP systolic 123–151; BP diastolic 53–88; PULSE 65–82; RESP 13–26; TEMP 98–98.8
[2023-02-21] MEDS: NITROGLYCERIN OINT 1GM/INCH UDPKT TD SCH ×3 (06:00→21:06)
[2023-02-21] MEDS: BLOOD SUGAR DIAGNOSTIC STRIP TEST SCH ×4 (06:12→20:59)
[2023-02-21 06:35] LABS: HEMATOCRIT. 26.4 % (42.0-52.0); HEMOGLOBIN. 8.8 g/dL (14.0-18.0); MEAN CORPUSCULAR HEMOGLOBIN 27.5 pg (28.0-32.0); MEAN CORPUSCULAR HGB CONC 33.4 g/dL (31.0-37.0); MEAN CORPUSCULAR VOLUME 82.5 fL (80.0-94.0); MEAN PLATELET VOLUME 9.6 fl (7.4-10.4); PLATELET 277 x1000/uL (130-400); RED CELL DISTRIBUTION WIDTH 16.3 % (11.6-14.6); WHITE BLOOD COUNT 9.4 x1000/uL (4.5-11.0)
[2023-02-21 06:42] LABS: DIFFERENTIAL COMMENT 1
[2023-02-21] MEDS: OMEPRAZOLE 20MG CAPSULE EXTENDED RELEASE PO SCH (06:50)
[2023-02-21 06:56] LABS: POTASSIUM 3.8 mEq/L (3.5-5.1)
[2023-02-21 07:01] LABS: CALCIUM 8.2 mg/dL (8.5-10.1); CREATININE 7.4 mg/dL (0.6-1.3)
[2023-02-21] MEDS: INSULIN LISPRO 100 UNITS/ML SUBCUT SCH ×4 (07:20→21:05)
[2023-02-21] MEDS ORDERED: METOPROLOL TARTRATE 50MG TABLET PO NR (08:00)
[2023-02-21] MEDS: TAMSULOSIN HCL 0.4MG SR CAPSULE PO SCH (08:32)
[2023-02-21] MEDS: DOXYCYCLINE HYCLATE 100MG CAPSULE PO SCH ×2 (08:33→16:23)
[2023-02-21] MEDS: FUROSEMIDE 40MG/4ML VIAL IVP SCH ×2 (08:33→21:06)
[2023-02-21] MEDS ORDERED: METOPROLOL TARTRATE 100MG TABLET PO NR (09:00)
[2023-02-21] MEDS: LORAZEPAM 1MG TABLET PO PRN ×2 (09:38→23:08)
[2023-02-21] MEDS ORDERED: HEPARIN 1000 UNITS/ML 10ML ONE (13:52)
[2023-02-21] MEDS ORDERED: LIDOCAINE HCL 1% 20ML VIAL (Pyxis) INJ ONE (13:52)
[2023-02-21] MEDS ORDERED: IODIXANOL 320MG/ML 100 ML BOTTLE IV ONE (13:52)
[2023-02-21] MEDS ORDERED: ACETAMINOPHEN 325MG TABLET PO PRN (14:30)
[2023-02-21] MEDS ORDERED: ONDANSETRON HCL 4MG/2ML INJ IV PRN (14:30)
[2023-02-21] MEDS ORDERED: ATROPINE SULFATE 1MG/10ML SYR IV PRN (14:30)
[2023-02-21] MEDS ORDERED: MORPHINE SULFATE 2 MG/ML CPJ (NOT FOR IM USE) IV PRN (14:30)
[2023-02-21] MEDS: CEFTRIAXONE 1,000 MG in DEXTROSE 5% WATER 50 ML IV SCH (14:38)
[2023-02-21] MEDS ORDERED: LORAZEPAM 2MG/ML CPJ IV PRN (16:00)
[2023-02-21] MEDS ORDERED: ALPRAZOLAM 0.5 MG TABLET PO PRN (16:45)
[2023-02-21] MEDS ORDERED: PRIL20 PO (20:12)
[2023-02-21] MEDS ORDERED: ALLO100T PO (20:12)
[2023-02-21] MEDS ORDERED: CLOP75TA33 PO (20:12)
[2023-02-21] MEDS ORDERED: GLIP10TA10 PO (20:13)
[2023-02-21] MEDS ORDERED: METOPROLOL TARTRATE 100MG TABLET PO SCH (21:00)
[2023-02-21] MEDS: ATORVASTATIN CALCIUM 20MG TABLET PO SCH (21:06)
[2023-02-21] MEDS: CARVEDILOL 3.125 MG TABLET PO SCH (21:06)
[2023-02-22] VITALS (15 sets, daily range): BP systolic 90–154; BP diastolic 56–124; PULSE 63–76; RESP 16–24; TEMP 97.1–98.6
[2023-02-22 05:51] LABS: PLATELET ESTIMATE NORMAL
[2023-02-22] MEDS: OMEPRAZOLE 20MG CAPSULE EXTENDED RELEASE PO SCH (05:56)
[2023-02-22] MEDS: BLOOD SUGAR DIAGNOSTIC STRIP TEST SCH ×4 (06:01→21:26)
[2023-02-22] MEDS: NITROGLYCERIN OINT 1GM/INCH UDPKT TD SCH ×3 (06:01→21:32)
[2023-02-22] MEDS: FUROSEMIDE 40MG/4ML VIAL IVP SCH ×2 (08:51→21:32)
[2023-02-22] MEDS: TAMSULOSIN HCL 0.4MG SR CAPSULE PO SCH (08:51)
[2023-02-22] MEDS: ASPIRIN 81MG TABLET PO SCH (08:51)
[2023-02-22] MEDS: DOXYCYCLINE HYCLATE 100MG CAPSULE PO SCH ×2 (08:51→18:10)
[2023-02-22] MEDS: INSULIN LISPRO 100 UNITS/ML SUBCUT SCH ×4 (08:59→21:33)
[2023-02-22] MEDS ORDERED: ASPI-1160 PO (11:26)
[2023-02-22] MEDS ORDERED: COR3 PO (11:26)
[2023-02-22] MEDS ORDERED: ATOR20TA PO (11:26)
[2023-02-22] MEDS: CEFTRIAXONE 1,000 MG in DEXTROSE 5% WATER 50 ML IV SCH (13:29)
[2023-02-22] MEDS: CARVEDILOL 3.125 MG TABLET PO SCH ×2 (13:29→21:32)
[2023-02-22] MEDS: ATORVASTATIN CALCIUM 20MG TABLET PO SCH (21:32)
[2023-02-23] VITALS (13 sets, daily range): BP systolic 141–165; BP diastolic 78–89; PULSE 68–80; RESP 12–18; TEMP 98.1–98.3
[2023-02-23] MEDS: NITROGLYCERIN OINT 1GM/INCH UDPKT TD SCH ×2 (06:20→14:00)
[2023-02-23] MEDS: BLOOD SUGAR DIAGNOSTIC STRIP TEST SCH ×2 (06:20→11:50)
[2023-02-23] MEDS: OMEPRAZOLE 20MG CAPSULE EXTENDED RELEASE PO SCH (06:20)
[2023-02-23 07:00] LABS: BASOPHILS % 0.4 % (0.0-2.0); EOSINOPHILS % 2.3 % (0.0-5.0); HEMATOCRIT. 30.8 % (42.0-52.0); HEMOGLOBIN. 10.3 g/dL (14.0-18.0); LYMPHOCYTES % 24.8 % (20.0-50.0); MEAN CORPUSCULAR HEMOGLOBIN 27.8 pg (28.0-32.0); MEAN CORPUSCULAR HGB CONC 33.6 g/dL (31.0-37.0); MEAN CORPUSCULAR VOLUME 82.8 fL (80.0-94.0); MEAN PLATELET VOLUME 9.1 fl (7.4-10.4); MONOCYTES % 13.6 % (2.0-8.0); NEUTROPHILS % 58.9 % (40.0-76.0); PLATELET 397 x1000/uL (130-400); RED BLOOD CELL COUNT 3.71 mill/uL (4.7-6.1); RED CELL DISTRIBUTION WIDTH 15.9 % (11.6-14.6); WHITE BLOOD COUNT 8.9 x1000/uL (4.5-11.0)
[2023-02-23] MEDS ORDERED: LIDOCAINE HCL 1% 10 MG/ML 10ML VIAL ONE (07:49)
[2023-02-23] MEDS ORDERED: FENTANYL CITRATE/PF 50MCG/ML 2ML VIAL ONE (08:48)
[2023-02-23] MEDS ORDERED: FENTANYL CITRATE/PF 50MCG/ML 2ML VIAL IV ONE (09:15)
[2023-02-23] MEDS ORDERED: FENTANYL CITRATE/PF 50MCG/ML 2ML VIAL IV SCH (09:16)
[2023-02-23 09:36] LABS: POTASSIUM 3.2 mEq/L (3.5-5.1)
[2023-02-23 09:45] LABS: CALCIUM 8.4 mg/dL (8.5-10.1); PHOSPHORUS 4.7 mg/dL (2.5-4.9)
[2023-02-23 09:48] LABS: CREATININE 7.7 mg/dL (0.6-1.3)
[2023-02-23] MEDS: ASPIRIN 81MG TABLET PO SCH (11:07)
[2023-02-23] MEDS: CARVEDILOL 3.125 MG TABLET PO SCH (11:08)
[2023-02-23] MEDS: TAMSULOSIN HCL 0.4MG SR CAPSULE PO SCH (11:09)
[2023-02-23] MEDS: DOXYCYCLINE HYCLATE 100MG CAPSULE PO SCH (11:09)
[2023-02-23] MEDS: FUROSEMIDE 40MG/4ML VIAL IVP SCH (11:10)
== END 2023-02-23 17:25 | disposition home or self-care (01) | DRG 871 ==
LOC: ER 16:03 → 3WST 21:21
PROVIDERS: ADMIT Family Medicine Adult Medicine; ATTEND Family Medicine Adult Medicine
PROC: 02HV33Z Insertion of Infusion Device into Superior Vena Cava, Percutaneous Approach (ICD-10-PCS; 2023-02-15)
PROC: 5A1D70Z Performance of Urinary Filtration, Intermittent, Less than 6 Hours Per Day (ICD-10-PCS; 2023-02-15)
PROC: 5A1D70Z Performance of Urinary Filtration, Intermittent, Less than 6 Hours Per Day (ICD-10-PCS; 2023-02-16)
PROC: 5A1D70Z Performance of Urinary Filtration, Intermittent, Less than 6 Hours Per Day (ICD-10-PCS; 2023-02-19)
PROC: 4A023N7 Measurement of Cardiac Sampling and Pressure, Left Heart, Percutaneous Approach (ICD-10-PCS; principal; 2023-02-21)
PROC: B2161ZZ Fluoroscopy of Right and Left Heart using Low Osmolar Contrast (ICD-10-PCS; 2023-02-21)
PROC: 5A1D70Z Performance of Urinary Filtration, Intermittent, Less than 6 Hours Per Day (ICD-10-PCS; 2023-02-21)
PROC: 0JH63XZ Insertion of Tunneled Vascular Access Device into Chest Subcutaneous Tissue and Fascia, Percutaneous Approach (ICD-10-PCS; 2023-02-23)
PROC: 02HV33Z Insertion of Infusion Device into Superior Vena Cava, Percutaneous Approach (ICD-10-PCS; 2023-02-23)
PROC: B5181ZA Fluoroscopy of Superior Vena Cava using Low Osmolar Contrast, Guidance (ICD-10-PCS; 2023-02-23)
PROC: 5A1D70Z Performance of Urinary Filtration, Intermittent, Less than 6 Hours Per Day (ICD-10-PCS; 2023-02-23)
DX: A41.9 Sepsis, unspecified organism (principal); I21.4 Non-ST elevation (NSTEMI) myocardial infarction; J18.9 Pneumonia, unspecified organism; J96.21 Acute and chronic respiratory failure with hypoxia; N18.6 End stage renal disease; I50.23 Acute on chronic systolic (congestive) heart failure; I13.2 Hypertensive heart and chronic kidney disease with heart failure and with stage 5 chronic kidney disease, or end stage renal disease; E11.52 Type 2 diabetes mellitus with diabetic peripheral angiopathy with gangrene; I42.9 Cardiomyopathy, unspecified; E11.22 Type 2 diabetes mellitus with diabetic chronic kidney disease; E11.65 Type 2 diabetes mellitus with hyperglycemia; I44.0 Atrioventricular block, first degree; D64.9 Anemia, unspecified; E78.5 Hyperlipidemia, unspecified; I25.10 Atherosclerotic heart disease of native coronary artery without angina pectoris; E11.51 Type 2 diabetes mellitus with diabetic peripheral angiopathy without gangrene; I45.10 Unspecified right bundle-branch block; N40.0 Benign prostatic hyperplasia without lower urinary tract symptoms; R94.31 Abnormal electrocardiogram [ECG] [EKG]; R91.8 Other nonspecific abnormal finding of lung field; Z82.49 Family history of ischemic heart disease and other diseases of the circulatory system; Z83.3 Family history of diabetes mellitus; Z86.11 Personal history of tuberculosis; Z86.15 Personal history of latent tuberculosis infection; Z87.891 Personal history of nicotine dependence; Z95.5 Presence of coronary angioplasty implant and graft; Z99.2 Dependence on renal dialysis
CPT/HCPCS: 36415; 36556; 36558; 36589; 36600; 71045; 71250; 71260; 76937; 77001; 78580; 80048; 80053; 80061; 82375; 82805; 82962; 83036; 83735; 83880; 84100; 84145; 84484; 85025; 86705; 86706; 86707; 86709; 86803; 87340; 90935; 93005; 93970; 99152; 99153; 99291; C1750; C1752; C1769; C1887; J0696; J1642; J1644; J1815; J1940; J2060; J2270; J2405; J2765; J3010; J3490; J7060; J8597; Q9967; G0500

== ENCOUNTER → 2023-08-03 | Outpatient (CLI) | payer MEDICARE, MEDICAID ==
[~2023-08-03] MED LIST changes: +ALLO100T PO; +ASPI-1160 PO; +ATOR20TA PO; -CHOL100062; -CLOP-31 PO; +COR3 PO; +FOLI0.8T23 MT; -GABA-532 PO; -GEMF600T90 PO; -HYDR-4135 PO; +OMEP10SU2 PO; -OMEP20CA14 PO; +PRIL20 PO
== END | disposition home or self-care (01) ==
LOC: CT 10:54
PROVIDERS: ATTEND Internal Medicine Critical Care Medicine
DX: R91.8 Other nonspecific abnormal finding of lung field (principal); R06.02 Shortness of breath; I25.10 Atherosclerotic heart disease of native coronary artery without angina pectoris; I51.7 Cardiomegaly
CPT/HCPCS: 71250

== ENCOUNTER 2024-07-24 13:22 | Inpatient (IN) | payer MEDICARE, MEDICAID ==
[~2024-07-24] VITALS: Ht 180.3 cm; Wt 101.3 kg
[~2024-07-24 13:22] MED LIST changes: -GLIP10TA10 PO; +GLIP10TA17 PO
[2024-07-24] MEDS: CEFTRIAXONE 1GM/50ML 50 ML IV ONE (14:19)
[2024-07-24 14:33] LABS: BASOPHILS % 0.5 % (0.0-2.0); EOSINOPHILS % 1.2 % (0.0-5.0); HEMATOCRIT. 36.8 % (42.0-52.0); HEMOGLOBIN. 12.3 g/dL (14.0-18.0); LYMPHOCYTES % 22.3 % (20.0-50.0); MEAN CORPUSCULAR HEMOGLOBIN 30.1 pg (28.0-32.0); MEAN CORPUSCULAR HGB CONC 33.5 g/dL (31.0-37.0); MEAN PLATELET VOLUME 12.2 fl (7.4-10.4); PLATELET 131 x1000/uL (130-400); RED BLOOD CELL COUNT 4.09 mill/uL (4.7-6.1); RED CELL DISTRIBUTION WIDTH 15.1 % (11.6-14.6)
[2024-07-24 14:37] LABS: CHLORIDE 103 mEq/L (98-107); POTASSIUM 4.1 mEq/L (3.5-5.1); SODIUM 137 mEq/L (136-145)
[2024-07-24 14:38] LABS: CALCIUM 8.4 mg/dL (8.7-10.4); CARBON DIOXIDE 24 mEq/L (21-32)
[2024-07-24 14:43] LABS: CREATININE 4.4 mg/dL (0.6-1.3); GLUCOSE 272 mg/dL (70-105); UREA NITROGEN BLOOD 36 mg/dL (9-23)
[2024-07-24 14:44] LABS: ALANINE AMINOTRANSFERASE 31 IU/L (10-49); ALBUMIN 3.7 g/dL (3.2-4.8); ASPARTATE AMINOTRANSFERASE 23 IU/L (<34); BILIRUBIN DIRECT 0.2 mg/dL (<=3.0); BILIRUBIN TOTAL 0.6 mg/dL (0.1-1.0)
[2024-07-24 14:45] LABS: PROTEIN TOTAL 7.3 g/dL (6.0-8.3)
[2024-07-24 14:55] LABS: TROPONIN I HIGH SENSITIVITY 139 ng/L (3.0-53)
[2024-07-24] MEDS ORDERED: ONDANSETRON HCL 4MG/2ML INJ IV PRN (15:30)
[2024-07-24] MEDS ORDERED: GUAIFENESIN 200MG/10ML SUGAR FREE UDC PO PRN (15:30)
[2024-07-24] MEDS ORDERED: DOCUSATE SODIUM 100MG CAPSULE PO PRN (15:30)
[2024-07-24] MEDS ORDERED: IPRATROPIUM/ALBUTEROL 0.5-3(2.5)MG/3ML NEB HHN PRN (15:30)
[2024-07-24] MEDS ORDERED: ACETAMINOPHEN 325MG TABLET PO PRN ×2 (15:30)
[2024-07-24] MEDS: AZITHROMYCIN 500MG/250ML 250 ML IV NR (15:39)
[2024-07-24] MEDS ORDERED: DEXTROSE 50% WATER 50ML SYRINGE IV PRN (16:15)
[2024-07-24] MEDS: BLOOD SUGAR DIAGNOSTIC STRIP TEST SCH (17:00)
[2024-07-24] MEDS: INSULIN LISPRO 100 UNITS/ML SUBCUT SCH (17:48)
[2024-07-24 18:00] VITALS: BP 141/83; PULSE 80; RESP 20; O2SAT 96
[2024-07-24 18:55] VITALS: BP 151/81; PULSE 74; RESP 14; TEMP 36.7; O2SAT 97
[2024-07-24 19:06] VITALS: BP 151/81; PULSE 70; RESP 21; TEMP 37
[2024-07-24 20:00] VITALS: BP 136/76; PULSE 74; RESP 19; TEMP 36.8; O2SAT 92
[2024-07-24] MEDS: ENOXAPARIN 40MG/0.4ML SYR SUBCUT SCH (21:10)
[2024-07-24] MEDS: INSULIN GLARGINE 100 UNITS/ML SUBCUT SCH (21:12)
[2024-07-24] MEDS: ATORVASTATIN CALCIUM 20MG TABLET PO SCH (21:13)
[2024-07-24] MEDS: CARVEDILOL 3.125 MG TABLET PO SCH (21:14)
[2024-07-24 22:55] LABS: CLARITY URINE CLEAR (CLEAR); COLOR URINE YELLOW (YELLOW); GLUCOSE URINE 2+ (NEGATIVE); KETONES URINE NEGATIVE (NEGATIVE); LEUKOCYTE ESTERASE URINE NEGATIVE (NEGATIVE); NITRITE URINE NEGATIVE (NEGATIVE); OCCULT BLOOD URINE TRACE (NEGATIVE); PROTEIN URINE 3+ (NEGATIVE); SPECIFIC GRAVITY URINE 1.013 (1.005-1.030)
[2024-07-24 23:13] LABS: *AMPHETAMINES SCREEN URINE NEGATIVE (NEGATIVE); *BARBITURATES SCREEN URINE NEGATIVE (NEGATIVE); *BENZODIAZEPINES SCREEN URINE NEGATIVE (NEGATIVE); *COCAINE SCREEN URINE NEGATIVE (NEGATIVE); CANNABINOID URINE SCREEN NEGATIVE (NEGATIVE); ECSTASY MDMA SCREEN URINE NEGATIVE (NEGATIVE); METHADONE URINE SCREEN NEGATIVE (NEGATIVE); OPIATES URINE SCREEN NEGATIVE (NEGATIVE); PHENCYCLIDINE URINE SCREEN NEGATIVE (NEGATIVE)
[2024-07-24 23:20] LABS: BACTERIA URINE TRACE; RBC URINE 0-2 /hpf (0-2); SQUAMOUS EPITHELIAL CELL URINE RARE /lpf (RARE/1+); WBC URINE 0-2 /hpf (0-2)
[2024-07-24 23:25] VITALS: BP 161/91; PULSE 76; RESP 24; TEMP 37.28076; O2SAT 93
[2024-07-24 23:30] VITALS: BP 170/91; PULSE 78; RESP 21; TEMP 37.28076; O2SAT 94
[2024-07-25] VITALS (8 sets, daily range): BP systolic 124–173; BP diastolic 62–93; PULSE 72–79; RESP 17–24; TEMP 36.114–37.3; O2SAT 93–97
[2024-07-25 00:07] LABS: TROPONIN I HIGH SENSITIVITY 106 ng/L (3.0-53)
[2024-07-25] MEDS: FUROSEMIDE 40MG/4ML VIAL IV SCH (08:30)
[2024-07-25] MEDS: ASPIRIN 81MG TABLET PO SCH (08:30)
[2024-07-25] MEDS: TAMSULOSIN HCL 0.4MG SR CAPSULE PO SCH (08:31)
[2024-07-25] MEDS: AMLODIPINE 10MG TABLET PO SCH (08:31)
[2024-07-25 08:39] LABS: BASOPHILS % 0.7 % (0.0-2.0); DIFFERENTIAL COMMENT 0; EOSINOPHILS % 1.9 % (0.0-5.0); HEMATOCRIT. 37.1 % (42.0-52.0); HEMOGLOBIN. 12.5 g/dL (14.0-18.0); LYMPHOCYTES % 26.3 % (20.0-50.0); MEAN CORPUSCULAR HEMOGLOBIN 29.9 pg (28.0-32.0); MEAN CORPUSCULAR HGB CONC 33.8 g/dL (31.0-37.0); MEAN CORPUSCULAR VOLUME 88.4 fL (80.0-94.0); MEAN PLATELET VOLUME 12.2 fl (7.4-10.4); NEUTROPHILS % 60.1 % (40.0-76.0); PLATELET 141 x1000/uL (130-400); RED CELL DISTRIBUTION WIDTH 14.9 % (11.6-14.6); WHITE BLOOD COUNT 11.1 x1000/uL (4.5-11.0)
[2024-07-25 08:45] LABS: POTASSIUM 3.8 mEq/L (3.5-5.1)
[2024-07-25 08:46] LABS: CALCIUM 8.9 mg/dL (8.7-10.4)
[2024-07-25 08:50] LABS: T4 FREE 1.22 ng/dL (0.89-1.76); THYROID STIMULATING HORMONE 2.03 uIU/mL (0.55-4.78)
[2024-07-25 08:51] LABS: CREATININE 4.3 mg/dL (0.6-1.3)
[2024-07-25 09:07] LABS: TROPONIN I HIGH SENSITIVITY 104 ng/L (3.0-53)
[2024-07-25] MEDS: AZITHROMYCIN 500MG/250ML 250 ML IV SCH (12:18)
[2024-07-25] MEDS ORDERED: CEFTRIAXONE 1GM/50ML 50 ML IV SCH (14:00)
[2024-07-25] MEDS ORDERED: DEXTROSE 50% WATER 50ML SYRINGE IV PRN (15:45)
[2024-07-25 16:15] LABS: INFLUENZA TYPE A Presumptive Negative (Pres. Neg.); INFLUENZA TYPE B Presumptive Negative (Pres. Neg.)
[2024-07-25 16:17] LABS: RESPIRATORY SYNCYTIAL VIRUS Not Detected (Not Detectd)
[2024-07-25] MEDS: CEFTRIAXONE 1GM/50ML 50 ML IV SCH (16:34)
[2024-07-25 16:50] LABS: INFLUENZA TYPE A Presumptive Negative (Pres. Neg.)
[2024-07-25 16:51] LABS: INFLUENZA TYPE B Presumptive Negative (Pres. Neg.)
[2024-07-25] MEDS: INSULIN LISPRO 100 UNITS/ML SUBCUT SCH (17:07)
[2024-07-25] MEDS: HYDRALAZINE HCL 25MG TABLET PO SCH (20:21)
[2024-07-26] VITALS (10 sets, daily range): BP systolic 144–170; BP diastolic 76–90; PULSE 70–89; RESP 16–22; TEMP 36.5–37; O2SAT 93–98
[2024-07-26] MEDS: CLOPIDOGREL 75MG TABLET PO SCH (09:02)
[2024-07-26] MEDS: HYDRALAZINE HCL 25MG TABLET PO SCH (14:37)
[2024-07-26] MEDS: INSULIN GLARGINE 100 UNITS/ML SUBCUT SCH (21:12)
[2024-07-27] VITALS: BP 155/86; PULSE 74; RESP 26; TEMP 36.5
[2024-07-27 04:00] VITALS: BP 159/69; PULSE 73; RESP 23; TEMP 36.7; O2SAT 97
[2024-07-27 06:07] LABS: BASOPHILS % 0.3 % (0.0-2.0); CHLORIDE 99 mEq/L (98-107); EOSINOPHILS % 3.6 % (0.0-5.0); HEMATOCRIT. 36.6 % (42.0-52.0); HEMOGLOBIN. 12.7 g/dL (14.0-18.0); LYMPHOCYTES % 31.9 % (20.0-50.0); MEAN CORPUSCULAR HEMOGLOBIN 30.8 pg (28.0-32.0); MEAN CORPUSCULAR HGB CONC 34.7 g/dL (31.0-37.0); MEAN CORPUSCULAR VOLUME 88.7 fL (80.0-94.0); MEAN PLATELET VOLUME 10.8 fl (7.4-10.4); MONOCYTES % 11.2 % (2.0-8.0); PLATELET 183 x1000/uL (130-400); POTASSIUM 3.5 mEq/L (3.5-5.1); RED BLOOD CELL COUNT 4.12 mill/uL (4.7-6.1); RED CELL DISTRIBUTION WIDTH 14.6 % (11.6-14.6); SODIUM 135 mEq/L (136-145); WHITE BLOOD COUNT 8.8 x1000/uL (4.5-11.0)
[2024-07-27 06:08] LABS: CALCIUM 8.7 mg/dL (8.7-10.4); CARBON DIOXIDE 25 mEq/L (21-32)
[2024-07-27 06:13] LABS: CREATININE 4.2 mg/dL (0.6-1.3); GLUCOSE 292 mg/dL (70-105); UREA NITROGEN BLOOD 30 mg/dL (9-23)
[2024-07-27] MEDS: INSULIN LISPRO 100 UNITS/ML SUBCUT SCH (06:14)
[2024-07-27 06:35] VITALS: BP 142/80; PULSE 75; RESP 16; TEMP 36.22512; O2SAT 97
[2024-07-27 06:57] LABS: PHOSPHORUS 3.9 mg/dL (2.5-4.9)
[2024-07-27 08:00] VITALS: BP 183/90; PULSE 71; RESP 21; TEMP 36.8; O2SAT 97
[2024-07-27] MEDS: AZITHROMYCIN 500 MG TABLET PO SCH (09:20)
[2024-07-27] MEDS: CARVEDILOL 12.5MG TABLET PO NR (11:12)
[2024-07-27] MEDS: HYDRALAZINE HCL 25MG TABLET PO NR (11:13)
[2024-07-27 12:00] VITALS: BP 128/75; PULSE 83; RESP 21; TEMP 36.9; O2SAT 98
[2024-07-27] MEDS ORDERED: HYDRALAZINE 20MG/ML VIAL IV PRN (12:00)
[2024-07-27] MEDS ORDERED: CARV25TA47 PO (13:55)
[2024-07-27] MEDS ORDERED: CLOP75TA33 MT ×2 (13:55→13:56)
[2024-07-27] MEDS ORDERED: HYDRALAZINE HCL 50MG TABLET PO SCH (15:00)
[2024-07-27 15:03] VITALS: BP 128/75; PULSE 83; TEMP 98.5; O2SAT 98
[2024-07-27] MEDS ORDERED: CARVEDILOL 12.5MG TABLET PO SCH (21:00)
== END 2024-07-27 15:30 | disposition home or self-care (01) | DRG 871 ==
LOC: ER 13:22 → 3WST 14:49 → EDBEDREQ 14:54 → EDBEDREQTM 14:54
PROVIDERS: ADMIT Internal Medicine; ATTEND Internal Medicine
PROC: 3E1M39Z Irrigation of Peritoneal Cavity using Dialysate, Percutaneous Approach (ICD-10-PCS; principal; 2024-07-24)
PROC: 3E1M39Z Irrigation of Peritoneal Cavity using Dialysate, Percutaneous Approach (ICD-10-PCS; 2024-07-25)
PROC: 3E1M39Z Irrigation of Peritoneal Cavity using Dialysate, Percutaneous Approach (ICD-10-PCS; 2024-07-26)
DX: A41.9 Sepsis, unspecified organism (principal); I21.A1 Myocardial infarction type 2; J96.01 Acute respiratory failure with hypoxia; J18.9 Pneumonia, unspecified organism; N18.6 End stage renal disease; T80.211A Bloodstream infection due to central venous catheter, initial encounter; N39.0 Urinary tract infection, site not specified; I50.42 Chronic combined systolic (congestive) and diastolic (congestive) heart failure; I69.354 Hemiplegia and hemiparesis following cerebral infarction affecting left non-dominant side; I13.2 Hypertensive heart and chronic kidney disease with heart failure and with stage 5 chronic kidney disease, or end stage renal disease; I42.9 Cardiomyopathy, unspecified; E11.52 Type 2 diabetes mellitus with diabetic peripheral angiopathy with gangrene; N40.0 Benign prostatic hyperplasia without lower urinary tract symptoms; E66.9 Obesity, unspecified; E11.22 Type 2 diabetes mellitus with diabetic chronic kidney disease; E78.00 Pure hypercholesterolemia, unspecified; I45.10 Unspecified right bundle-branch block; I44.0 Atrioventricular block, first degree; R59.0 Localized enlarged lymph nodes; Z20.822 Contact with and (suspected) exposure to COVID-19; I25.10 Atherosclerotic heart disease of native coronary artery without angina pectoris; Z99.2 Dependence on renal dialysis; Z68.30 Body mass index [BMI] 30.0-30.9, adult; Z79.02 Long term (current) use of antithrombotics/antiplatelets; Z79.4 Long term (current) use of insulin; Z79.82 Long term (current) use of aspirin; Z79.84 Long term (current) use of oral hypoglycemic drugs; Z79.899 Other long term (current) drug therapy; Z86.11 Personal history of tuberculosis; Z86.15 Personal history of latent tuberculosis infection; Z87.891 Personal history of nicotine dependence; Z89.419 Acquired absence of unspecified great toe; Z95.5 Presence of coronary angioplasty implant and graft; Z68.31 Body mass index [BMI] 31.0-31.9, adult; Y83.8 Other surgical procedures as the cause of abnormal reaction of the patient, or of later complication, without mention of misadventure at the time of the procedure; Y92.89 Other specified places as the place of occurrence of the external cause
CPT/HCPCS: 36415; 71045; 80048; 80061; 80076; 80305; 81003; 82962; 83036; 83735; 83880; 84100; 84145; 84439; 84443; 84484; 85025; 85651; 87420; 87426; 87804; 90945; 93005; 93970; 97166; 99285; A4606; J0360; J0456; J0696; J1650; J1815; J1940

== ENCOUNTER 2024-12-11 12:58 | Emergency (ER) | payer MEDICARE, MEDICAID ==
[~2024-12-11] VITALS: Ht 172.7 cm; Wt 95.0 kg
[~2024-12-11 12:58] MED LIST changes: +CLOP75TA33 MT; +DOCU-138 MT; +FURO-151 MT; +HYDR25TA78 PO; +PROM6.2527 MT; -TAMS-11 PO; +TAMS-54 PO; +hydralazine PO; +vit d PO
[2024-12-11 13:05] VITALS: O2SAT 99
[2024-12-11 13:27] LABS: BASOPHILS % 0.5 % (0.0-2.0); EOSINOPHILS % 2.5 % (0.0-5.0); HEMATOCRIT. 34.9 % (42.0-52.0); HEMOGLOBIN. 12.1 g/dL (14.0-18.0); LYMPHOCYTES % 38.5 % (20.0-50.0); MEAN PLATELET VOLUME 9.8 fl (7.4-10.4); MONOCYTES % 11.6 % (2.0-8.0); NEUTROPHILS % 46.9 % (40.0-76.0); PLATELET 138 x1000/uL (130-400); RED BLOOD CELL COUNT 4.05 mill/uL (4.7-6.1); RED CELL DISTRIBUTION WIDTH 15.2 % (11.6-14.6)
[2024-12-11 13:39] LABS: UREA NITROGEN BLOOD 28 mg/dL (9-23)
[2024-12-11 13:41] LABS: ASPARTATE AMINOTRANSFERASE 26 IU/L (<34); BILIRUBIN DIRECT < 0.1 mg/dL (<=3.0); BILIRUBIN TOTAL 0.3 mg/dL (0.1-1.0); PROTEIN TOTAL 7.9 g/dL (6.0-8.3)
[2024-12-11 13:54] LABS: CREATININE 3.7 mg/dL (0.6-1.3)
[2024-12-11] MEDS ORDERED: HYDR-4001 MT (15:24)
[2024-12-11 15:41] VITALS: BP 114/60; PULSE 72; RESP 18; TEMP 36.9; O2SAT 98
== END 2024-12-11 15:43 | disposition home or self-care (01) ==
LOC: ER 12:58
DX: R91.8 Other nonspecific abnormal finding of lung field (principal); R10.9 Unspecified abdominal pain; I12.0 Hypertensive chronic kidney disease with stage 5 chronic kidney disease or end stage renal disease; E11.22 Type 2 diabetes mellitus with diabetic chronic kidney disease; N18.6 End stage renal disease; Z88.5 Allergy status to narcotic agent; Z79.82 Long term (current) use of aspirin; Z79.4 Long term (current) use of insulin; Z98.890 Other specified postprocedural states; Z79.899 Other long term (current) drug therapy; Z86.73 Personal history of transient ischemic attack (TIA), and cerebral infarction without residual deficits
CPT/HCPCS: 36415; 71045; 74176; 80048; 80076; 85025; 93005; 99285

== ENCOUNTER → 2025-02-12 | Outpatient (CLI) | payer MEDICARE, MEDICAID ==
[~2025-02-12] MED LIST changes: +HYDR-4001 MT
== END | disposition home or self-care (01) ==
LOC: RAD 10:03
PROVIDERS: ATTEND Internal Medicine Critical Care Medicine
DX: J90 Pleural effusion, not elsewhere classified (principal); I51.7 Cardiomegaly
CPT/HCPCS: 71046

== ENCOUNTER 2025-04-11 07:51 | Inpatient (IN) | payer MEDICARE, MEDICAID ==
[~2025-04-11] VITALS: Ht 177.8 cm; Wt 95.4 kg
[2025-04-11] VITALS (9 sets, daily range): BP systolic 103–154; BP diastolic 75–83; PULSE 65–71; RESP 19–20; TEMP 36.3068–37.05852; O2SAT 100
[~2025-04-11 07:51] MED LIST changes: -ASPI-1160 PO; +ASPI-1497 PO; +ATOR10TA69 PO; -ATOR20TA PO; +CHOL-36 PO; -CLOP75TA33 MT; +CLOP75TA33 PO; -COR3 PO; -DOCU-138 MT; -FOLI0.8T23 MT; +FOLI0.8T23 PO; -FURO-151 MT; +FURO40TA5 PO; -HYDR-4001 MT; +INSU100I13 SQ; +INSU100I24 SQ; -OMEP10SU2 PO; +OMEP20CA14 PO; -PRIL20 PO; -PROM6.2527 MT; +TRAM50TA3 PO; -hydralazine PO; -vit d PO
[2025-04-11 08:45] LABS: UREA NITROGEN BLOOD 29.0 mg/dL (9-23)
[2025-04-11 08:47] LABS: CREATININE 4.5 mg/dL (0.6-1.3)
[2025-04-11] MEDS ORDERED: CARV25TA47 PO (09:30)
[2025-04-11] MEDS ORDERED: DOCU-138 PO (09:30)
[2025-04-11] MEDS ORDERED: HEPARIN 1000 UNITS/ML 10ML ONE (10:28)
[2025-04-11] MEDS ORDERED: LIDOCAINE HCL 1% 20ML VIAL ONE (10:28)
[2025-04-11] MEDS ORDERED: IODIXANOL 320 MG/ML 150ML BOTTLE IV ONE (10:28)
[2025-04-11] MEDS ORDERED: FENTANYL CITRATE/PF 50MCG/ML 2ML VIAL ONE (10:58)
[2025-04-11] MEDS ORDERED: MIDAZOLAM HCL 2 MG/2 ML VIAL ONE (10:58)
[2025-04-11] MEDS ORDERED: CLOPIDOGREL 75MG TABLET ONE (11:13)
[2025-04-11] MEDS ORDERED: ASPIRIN 325MG TABLET ONE (11:13)
[2025-04-11] MEDS ORDERED: ONDANSETRON HCL 4MG/2ML INJ IV PRN (12:00)
[2025-04-11] MEDS ORDERED: ATROPINE SULFATE 1MG/10ML SYR IV PRN (12:00)
[2025-04-11] MEDS ORDERED: HYDRALAZINE 20MG/ML VIAL IV PRN (12:15)
[2025-04-11] MEDS ORDERED: DOCUSATE SODIUM 250MG CAPSULE PO PRN (13:00)
[2025-04-11] MEDS ORDERED: DEXTROSE 50% WATER 50ML SYRINGE IV PRN (16:00)
[2025-04-11] MEDS: BLOOD SUGAR DIAGNOSTIC STRIP TEST SCH (16:50)
[2025-04-11] MEDS: ACETAMINOPHEN 325MG TABLET PO PRN (16:56)
[2025-04-11] MEDS: HYDRALAZINE HCL 50MG TABLET PO SCH (16:57)
[2025-04-11] MEDS: INSULIN LISPRO 100 UNITS/ML SUBCUT SCH (18:26)
[2025-04-11] MEDS: ATORVASTATIN CALCIUM 10MG TABLET PO SCH (23:01)
[2025-04-12] VITALS: BP 136/58; PULSE 70; RESP 15; TEMP 37; O2SAT 99
[2025-04-12 04:00] VITALS: BP 114/53; PULSE 74; RESP 27; TEMP 36.6; O2SAT 97
[2025-04-12 07:07] LABS: BASOPHILS % 0.3 % (0.0-2.0); EOSINOPHILS % 2.4 % (0.0-5.0); HEMATOCRIT. 36.1 % (42.0-52.0); HEMOGLOBIN. 12.1 g/dL (14.0-18.0); LYMPHOCYTES % 21.4 % (20.0-50.0); MEAN PLATELET VOLUME 10.2 fl (7.4-10.4); MONOCYTES % 13.2 % (2.0-8.0); NEUTROPHILS % 62.7 % (40.0-76.0); PLATELET 172 x1000/uL (130-400); RED BLOOD CELL COUNT 3.95 mill/uL (4.7-6.1); RED CELL DISTRIBUTION WIDTH 16.1 % (11.6-14.6)
[2025-04-12 07:19] LABS: CREATININE 3.9 mg/dL (0.6-1.3); UREA NITROGEN BLOOD 21.0 mg/dL (9-23)
[2025-04-12 08:00] VITALS: BP 133/73; PULSE 73; RESP 18; TEMP 36.7; O2SAT 97
[2025-04-12] MEDS: CLOPIDOGREL 75MG TABLET PO SCH (08:57)
[2025-04-12] MEDS: AMLODIPINE 10MG TABLET PO SCH (08:57)
[2025-04-12] MEDS: ASPIRIN 325MG TABLET PO SCH (08:57)
[2025-04-12] MEDS: TAMSULOSIN HCL 0.4MG SR CAPSULE PO SCH (08:58)
[2025-04-12 11:00] VITALS: BP 159/78; PULSE 78; RESP 16; TEMP 36.6; O2SAT 97
[2025-04-12 11:10] VITALS: BP 159/72; PULSE 78; RESP 16; TEMP 97.8
[2025-04-12 12:00] VITALS: BP 128/71; PULSE 78; RESP 16; TEMP 36.6; O2SAT 97
== END 2025-04-12 12:23 | disposition home or self-care (01) | DRG 321 ==
LOC: CCL 07:51 → 3WST 15:28
PROVIDERS: ADMIT Specialist; ATTEND Specialist
PROC: 027034Z Dilation of Coronary Artery, One Artery with Drug-eluting Intraluminal Device, Percutaneous Approach (ICD-10-PCS; principal; 2025-04-11)
PROC: 02703ZZ Dilation of Coronary Artery, One Artery, Percutaneous Approach (ICD-10-PCS; 2025-04-11)
PROC: 5A1D70Z Performance of Urinary Filtration, Intermittent, Less than 6 Hours Per Day (ICD-10-PCS; 2025-04-11)
PROC: 4A023N7 Measurement of Cardiac Sampling and Pressure, Left Heart, Percutaneous Approach (ICD-10-PCS; 2025-04-11)
PROC: B211YZZ Fluoroscopy of Multiple Coronary Arteries using Other Contrast (ICD-10-PCS; 2025-04-11)
DX: I25.10 Atherosclerotic heart disease of native coronary artery without angina pectoris (principal); N18.6 End stage renal disease; I13.11 Hypertensive heart and chronic kidney disease without heart failure, with stage 5 chronic kidney disease, or end stage renal disease; Z99.81 Dependence on supplemental oxygen; Z99.2 Dependence on renal dialysis; E11.51 Type 2 diabetes mellitus with diabetic peripheral angiopathy without gangrene; J44.9 Chronic obstructive pulmonary disease, unspecified; I44.0 Atrioventricular block, first degree; E11.22 Type 2 diabetes mellitus with diabetic chronic kidney disease; E78.00 Pure hypercholesterolemia, unspecified; R59.0 Localized enlarged lymph nodes; I45.10 Unspecified right bundle-branch block; N40.0 Benign prostatic hyperplasia without lower urinary tract symptoms; Z86.73 Personal history of transient ischemic attack (TIA), and cerebral infarction without residual deficits; I25.2 Old myocardial infarction; Z79.82 Long term (current) use of aspirin; Z86.15 Personal history of latent tuberculosis infection
CPT/HCPCS: 36415; 80048; 82962; 83036; 85025; 85347; 90935; 92928; 93005; 93454; C1769; C1887; C1893; J1644; J1815; J2003; J2250; J3010; Q9967; C1874